=== PATIENT | female | born 1930 | race Caucasian/White ===

== ENCOUNTER → 2018-01-15 | Day surgery (SDC) | payer OTHER ==
[~2018-01-15] MED LIST: ALENDRONATE SOD35 MG PO; CLOPIDOGREL75 MG PO; LIDOCAINE HCL 2% LOCAL INJ 5 ML SDV VIAL INJ ONE; LOSARTAN POTAS100 MG PO; POTASSIUM CHLO10 ME1 PO; PROPOFOL IV EMULSION 10 MG/ML 20 ML VIAL ONE; SIMVASTATIN20 MG PO; TORSEMIDE10 MG PO
--- OUTSIDE RECORDS SUMMARY | 2018-01-15 09:21 | XMS REPORT ---
Author Author Dina Rincon [facility] Unknown Address [address] [facility]. Phone Unavailable Care Team Providers Care Biology Teacher Name Role Phone Dr. NADIA CHAUHAN Unavailable Unavailable Advance directives Directive Description Status Cardiopulmonary Resuscitation FULL CODE Verified By Medical Record Only Allergies Type Substance Reaction Status drug allergy Azithromycin Active drug allergy Ceftriaxone Active drug allergy Tramadol Active Problems Problem Effective Dates Problem Status M84.454D PATHOLOGICAL FRACTURE, PELVIS, SUBSEQUENT ENCOUNTER FOR FRACTURE WITH ROUTINE HEALING 08/14/2017 Active S42.001A FRACTURE OF UNSPECIFIED PART OF RIGHT CLAVICLE, INITIAL ENCOUNTER FOR CLOSED FRACTURE 08/14/2017 Active Z91.81 HISTORY OF FALLING 08/14/2017 Active E78.5 HYPERLIPIDEMIA, UNSPECIFIED 08/14/2017 Active N17.9 ACUTE KIDNEY FAILURE, UNSPECIFIED 08/14/2017 Active S42.025D NONDISPLACED FRACTURE OF SHAFT OF LEFT CLAVICLE, SUBSEQUENT ENCOUNTER FOR FRACTURE WITH ROUTINE HEALING 08/14/2017 Active K57.90 DIVERTICULOSIS OF INTESTINE, PART UNSPECIFIED, WITHOUT PERFORATION OR ABSCESS WITHOUT BLEEDING 08/14/2017 Active S32.009A UNSPECIFIED FRACTURE OF UNSPECIFIED LUMBAR VERTEBRA, INITIAL ENCOUNTER FOR CLOSED FRACTURE 08/14/2017 Active S42.101A FRACTURE OF UNSPECIFIED PART OF SCAPULA, RIGHT SHOULDER, INITIAL ENCOUNTER FOR CLOSED FRACTURE 08/14/2017 Active E87.5 HYPERKALEMIA 08/14/2017 Active W19.XXXA UNSPECIFIED FALL, INITIAL ENCOUNTER 08/14/2017 Active F10.10 ALCOHOL ABUSE, UNCOMPLICATED 08/14/2017 Active D64.9 ANEMIA, UNSPECIFIED 08/14/2017 Active I10 ESSENTIAL (PRIMARY) HYPERTENSION 08/14/2017 Active K21.9 GASTRO-ESOPHAGEAL REFLUX DISEASE WITHOUT ESOPHAGITIS 08/14/2017 Active M81.8 OTHER OSTEOPOROSIS WITHOUT CURRENT PATHOLOGICAL FRACTURE 08/14/2017 Active Medications Medication Dose Form Route Sig Text Dates Status Senna Tablet 8.6 MG 1 tablet Tablet Oral Give 1 tablet by mouth as needed for Constipation Daily 08/14/2017 21:45:00 Folic Acid Tablet 1 MG 1 tablet Tablet Oral Give 1 tablet by mouth one time a day for Supplement 08/15/2017 7:00:00 Colace Capsule 100 MG 1 capsule Capsule Oral Give 1 capsule by mouth two times a day for Constipation 08/15/2017 7:00:00 Omeprazole Tablet Delayed Release 20 MG 1 tablet Tablet Delayed Release Oral Give 1 tablet by mouth in the morning for GERD 08/15/2017 6:30:00 Carafate Tablet 1 GM 1 tablet Tablet Oral 1 TAB(S) BY MOUTH 4 TIMES A DAY 08/15/2017 7:00:00 Ascorbic Acid Wafer 500 MG 1 wafer Wafer Oral Give 1 wafer by mouth one time a day for Supplement 08/15/2017 7:00:00 08/18/2017 10:06:00 Aborted Ferrous Sulfate Tablet 325 (65 Fe) MG 1 tablet Tablet Oral Give 1 tablet by mouth three times a day for Supplement 08/15/2017 7:00:00 08/18/2017 10:07:00 Aborted Potassium Chloride ER Tablet Extended Release 10 MEQ 1 tablet Tablet Extended Release Oral 1 TAB(S) BY MOUTH 2 TIMES A DAY 08/15/2017 7:00:00 Alendronate Sodium Tablet 35 MG 1 tablet Tablet Oral 1 TAB(S) BY MOUTH BEFORE BREAKFAST EVERY 7 DAYS (GIVE WITH 8OZ OF WATER, REMAIN UP RIGHT FOR 30MINUTES, NPO FOR 30MIN) FOR OSTEOPOROSISGIV 08/18/2017 7:00:00 Torsemide Tablet 20 MG 2 tablet Tablet Oral 2 TAB(S) BY MOUTH PM(2 TABS=40MG) 08/15/2017 19:00:00 Tylenol with Codeine #3 Tablet 300-30 MG 1 tablet Tablet Oral Give 1 tablet by mouth every 4 hours as needed for Pain 08/14/2017 21:45:00 08/22/2017 8:59:00 Aborted Zocor Tablet 10 MG 1 tablet Tablet Oral 1 TAB(S) BY MOUTH AT BEDTIME 08/15/2017 19:00:00 Losartan Potassium Tablet 50 MG 1 tablet Tablet Oral 1 TAB(S) BY MOUTH QDHOLD FOR SBP <110 HR <60 08/15/2017 7:00:00 Multivitamins Capsule 1 capsule Capsule Oral Give 1 capsule by mouth one time a day for Supplement 08/15/2017 7:00:00 Tylenol Tablet 325 MG 2 tablet Tablet Oral Give 2 tablet by mouth every 4 hours as needed for Pain Give 2 [id number] 08/14/2017 21:45:00 Thiamine HCl Tablet 100 MG 1 tablet Tablet Oral Give 1 tablet by mouth one time a day for Supplement 08/15/2017 7:00:00 Ferrous Sulfate Tablet 325 (65 Fe) MG 1 tablet Tablet Oral Give 1 tablet by mouth in the morning for Supplement 08/19/2017 7:00:00 [place] Tablet 5-325 MG 1 tablet Tablet Oral 1 TAB(S) BY MOUTH EVERY 4 HOURS NEEDED 08/18/2017 10:15:00 08/26/2017 17:15:00 Aborted GlycoLax Powder 17 gram Powder Oral Give 17 gram by mouth one time a day for constipation (in Liquid) 08/19/2017 7:00:00 Robaxin-750 Tablet 1 tablet Tablet Oral Give 1 tablet by mouth every 8 hours for Pain 08/22/2017 6:00:00 [place] Tablet 10-325 MG 1 tablet Tablet Oral 1 TAB(S) BY MOUTH EVERY 6 HOURS 08/22/2017 09/06/2017 2:37:00 Aborted Zofran Tablet 4 MG 1 tablet Tablet Oral 1 TAB(S) BY MOUTH EVERY 6 HOURS NEEDED 08/25/2017 9:00:00 Omeprazole Tablet Delayed Release 20 MG 1 tablet Tablet Delayed Release Oral Give 1 tablet by mouth two times a day for Prophylaxis 09/02/2017 15:00:00 Melatonin Tablet 3 MG 1 tablet Tablet Oral Give 1 tablet by mouth as needed for insomnia 09/02/2017 17:45:00 [place] Tablet 10-325 MG 1 tablet Tablet Oral Give 1 tablet by mouth every 6 hours as needed for Pain related to FRACTURE OF UNSPECIFIED PART OF SCAPULA, RIGHT SHOULDER, INITIAL ENCOUNTER FOR CLOSED FRACTURE (S42.101A) 09/06/2017 2:45:00 Tuberculin PPD Solution 0.1 ml Solution Intradermal Inject 0.1 ml intradermally one time only for Prophylaxis for 1 Day Adm within first 24 hours of admission. Repeat yearly. 08/14/2017 20:00:00 08/15/2017 19:59:00 Completed Cipro Tablet 250 MG 1 tablet Tablet Oral 1 TAB(S) BY MOUTH EVERY 12 HOURS FOR 2 DAYS 08/15/2017 7:00:00 08/17/2017 6:59:00 Completed Lasix Tablet 20 MG 1 tablet Tablet Oral 1 TAB(S) BY MOUTH EVERY MORNING FOR 3 DAYS 08/26/2017 7:00:00 08/29/2017 6:59:00 Completed Results No Known Results Vital signs Description Observation Date INTRAVASCULAR SYSTOLIC 112.0 mm[Hg] 08/14/2017 23:33:00 INTRAVASCULAR DIASTOLIC 95.0 mm[Hg] 08/14/2017 23:33:00 BODY TEMPERATURE 98.2 [degF] 08/14/2017 23:33:00 RESPIRATION RATE 18.0 /min 08/14/2017 23:33:00 HEART BEAT 56.0 {beats}/min 08/14/2017 23:33:00 OXYGEN SATURATION 95.0 % 08/14/2017 23:33:00 OXYGEN SATURATION 97.0 % 08/15/2017 4:01:00 RESPIRATION RATE 20.0 /min 08/15/2017 4:55:01 INTRAVASCULAR SYSTOLIC 103.0 mm[Hg] 08/15/2017 4:55:01 INTRAVASCULAR DIASTOLIC 81.0 mm[Hg] 08/15/2017 4:55:01 BODY TEMPERATURE 98.9 [degF] 08/15/2017 4:55:01 HEART BEAT 89.0 {beats}/min 08/15/2017 4:55:01 INTRAVASCULAR SYSTOLIC 110.0 mm[Hg] 08/15/2017 7:52:00 INTRAVASCULAR DIASTOLIC 75.0 mm[Hg] 08/15/2017 7:52:00 HEART BEAT 86.0 {beats}/min 08/15/2017 7:52:00 BODY WEIGHT (MEASURED) 144.8 [lb_av] 08/15/2017 10:06:00 BODY HEIGHT (MEASURED) 62.0 [in_i] 08/15/2017 10:06:00 RESPIRATION RATE 18.0 /min 08/15/2017 10:56:33 INTRAVASCULAR SYSTOLIC 110.0 mm[Hg] 08/15/2017 10:56:33 INTRAVASCULAR DIASTOLIC 75.0 mm[Hg] 08/15/2017 10:56:33 BODY TEMPERATURE 98.2 [degF] 08/15/2017 10:56:33 HEART BEAT 86.0 {beats}/min 08/15/2017 10:56:33 PAIN LEVEL 6.0 {score} 08/15/2017 15:21:31 PAIN LEVEL 1.0 {score} 08/15/2017 16:09:00 INTRAVASCULAR SYSTOLIC 123.0 mm[Hg] 08/15/2017 20:26:00 INTRAVASCULAR DIASTOLIC 56.0 mm[Hg] 08/15/2017 20:26:00 BODY TEMPERATURE 98.2 [degF] 08/15/2017 20:26:00 RESPIRATION RATE 18.0 /min 08/15/2017 20:26:00 HEART BEAT 72.0 {beats}/min 08/15/2017 20:26:00 OXYGEN SATURATION 96.0 % 08/15/2017 20:26:00 RESPIRATION RATE 18.0 /min 08/15/2017 21:41:29 INTRAVASCULAR SYSTOLIC 123.0 mm[Hg] 08/15/2017 21:41:29 INTRAVASCULAR DIASTOLIC 56.0 mm[Hg] 08/15/2017 21:41:29 BODY TEMPERATURE 98.2 [degF] 08/15/2017 21:41:29 HEART BEAT 72.0 {beats}/min 08/15/2017 21:41:29 PAIN LEVEL 7.0 {score} 08/16/2017 0:55:00 PAIN LEVEL 0.0 {score} 08/16/2017 1:55:00 RESPIRATION RATE 18.0 /min 08/16/2017 3:45:29 INTRAVASCULAR SYSTOLIC 94.0 mm[Hg] 08/16/2017 3:45:29 INTRAVASCULAR DIASTOLIC 63.0 mm[Hg] 08/16/2017 3:45:29 BODY TEMPERATURE 98.1 [degF] 08/16/2017 3:45:29 HEART BEAT 89.0 {beats}/min 08/16/2017 3:45:29 OXYGEN SATURATION 96.0 % 08/16/2017 4:05:00 PAIN LEVEL 8.0 {score} 08/16/2017 6:15:04 PAIN LEVEL 4.0 {score} 08/16/2017 7:15:00 PAIN LEVEL 4.0 {score} 08/16/2017 8:21:03 INTRAVASCULAR SYSTOLIC 126.0 mm[Hg] 08/16/2017 8:26:13 INTRAVASCULAR DIASTOLIC 80.0 mm[Hg] 08/16/2017 8:26:13 HEART BEAT 103.0 {beats}/min 08/16/2017 8:26:13 PAIN LEVEL 5.0 {score} 08/16/2017 10:21:35 PAIN LEVEL 4.0 {score} 08/16/2017 11:22:00 PAIN LEVEL 2.0 {score} 08/16/2017 12:22:08 RESPIRATION RATE 18.0 /min 08/16/2017 18:47:20 INTRAVASCULAR SYSTOLIC 108.0 mm[Hg] 08/16/2017 18:47:20 INTRAVASCULAR DIASTOLIC 72.0 mm[Hg] 08/16/2017 18:47:20 BODY TEMPERATURE 98.1 [degF] 08/16/2017 18:47:20 HEART BEAT 82.0 {beats}/min 08/16/2017 18:47:20 RESPIRATION RATE 18.0 /min 08/17/2017 2:06:07 INTRAVASCULAR SYSTOLIC 110.0 mm[Hg] 08/17/2017 2:06:07 INTRAVASCULAR DIASTOLIC 51.0 mm[Hg] 08/17/2017 2:06:07 BODY TEMPERATURE 98.8 [degF] 08/17/2017 2:06:07 HEART BEAT 68.0 {beats}/min 08/17/2017 2:06:07 PAIN LEVEL 9.0 {score} 08/17/2017 6:30:00 PAIN LEVEL 4.0 {score} 08/17/2017 7:30:00 INTRAVASCULAR SYSTOLIC 106.0 mm[Hg] 08/17/2017 8:30:18 INTRAVASCULAR DIASTOLIC 54.0 mm[Hg] 08/17/2017 8:30:18 HEART BEAT 120.0 {beats}/min 08/17/2017 8:30:18 RESPIRATION RATE 18.0 /min 08/17/2017 9:20:49 BODY TEMPERATURE 97.4 [degF] 08/17/2017 9:20:49 RESPIRATION RATE 18.0 /min 08/17/2017 17:46:56 INTRAVASCULAR SYSTOLIC 132.0 mm[Hg] 08/17/2017 17:46:56 INTRAVASCULAR DIASTOLIC 69.0 mm[Hg] 08/17/2017 17:46:56 BODY TEMPERATURE 98.3 [degF] 08/17/2017 17:46:56 HEART BEAT 83.0 {beats}/min 08/17/2017 17:46:56 RESPIRATION RATE 18.0 /min 08/18/2017 0:40:11 INTRAVASCULAR SYSTOLIC 110.0 mm[Hg] 08/18/2017 0:40:11 INTRAVASCULAR DIASTOLIC 64.0 mm[Hg] 08/18/2017 0:40:11 BODY TEMPERATURE 98.7 [degF] 08/18/2017 0:40:11 HEART BEAT 89.0 {beats}/min 08/18/2017 0:40:11 OXYGEN SATURATION 93.0 % 08/18/2017 0:41:00 PAIN LEVEL 7.0 {score} 08/18/2017 5:00:00 PAIN LEVEL 0.0 {score} 08/18/2017 6:54:53 INTRAVASCULAR SYSTOLIC 145.0 mm[Hg] 08/18/2017 8:37:13 INTRAVASCULAR DIASTOLIC 85.0 mm[Hg] 08/18/2017 8:37:13 HEART BEAT 93.0 {beats}/min 08/18/2017 8:37:13 PAIN LEVEL 5.0 {score} 08/18/2017 9:24:43 RESPIRATION RATE 18.0 /min 08/18/2017 10:15:29 BODY TEMPERATURE 97.6 [degF] 08/18/2017 10:15:29 PAIN LEVEL 0.0 {score} 08/18/2017 10:54:01 PAIN LEVEL 10.0 {score} 08/18/2017 12:24:00 PAIN LEVEL 0.0 {score} 08/18/2017 13:49:59 RESPIRATION RATE 21.0 /min 08/18/2017 17:21:29 INTRAVASCULAR SYSTOLIC 132.0 mm[Hg] 08/18/2017 17:21:29 INTRAVASCULAR DIASTOLIC 59.0 mm[Hg] 08/18/2017 17:21:29 BODY TEMPERATURE 98.0 [degF] 08/18/2017 17:21:29 HEART BEAT 73.0 {beats}/min 08/18/2017 17:21:29 PAIN LEVEL 6.0 {score} 08/18/2017 20:14:24 PAIN LEVEL 1.0 {score} 08/18/2017 21:11:33 RESPIRATION RATE 18.0 /min 08/19/2017 2:46:09 INTRAVASCULAR SYSTOLIC 123.0 mm[Hg] 08/19/2017 2:46:09 INTRAVASCULAR DIASTOLIC 55.0 mm[Hg] 08/19/2017 2:46:09 BODY TEMPERATURE 98.8 [degF] 08/19/2017 2:46:09 HEART BEAT 74.0 {beats}/min 08/19/2017 2:46:09 OXYGEN SATURATION 93.0 % 08/19/2017 3:19:00 PAIN LEVEL 5.0 {score} 08/19/2017 7:52:08 INTRAVASCULAR SYSTOLIC 114.0 mm[Hg] 08/19/2017 7:56:59 INTRAVASCULAR DIASTOLIC 67.0 mm[Hg] 08/19/2017 7:56:59 HEART BEAT 116.0 {beats}/min 08/19/2017 7:56:59 RESPIRATION RATE 18.0 /min 08/19/2017 8:20:34 BODY TEMPERATURE 97.6 [degF] 08/19/2017 8:20:34 PAIN LEVEL 3.0 {score} 08/19/2017 9:00:00 PAIN LEVEL 8.0 {score} 08/19/2017 13:00:00 PAIN LEVEL 2.0 {score} 08/19/2017 14:00:00 PAIN LEVEL 6.0 {score} 08/19/2017 15:42:35 PAIN LEVEL 2.0 {score} 08/19/2017 16:40:00 PAIN LEVEL 8.0 {score} 08/19/2017 17:00:00 INTRAVASCULAR SYSTOLIC 115.0 mm[Hg] 08/19/2017 19:06:00 INTRAVASCULAR DIASTOLIC 64.0 mm[Hg] 08/19/2017 19:06:00 BODY TEMPERATURE 98.2 [degF] 08/19/2017 19:06:00 RESPIRATION RATE 18.0 /min 08/19/2017 19:06:00 HEART BEAT 88.0 {beats}/min 08/19/2017 19:06:00 OXYGEN SATURATION 98.0 % 08/19/2017 19:06:00 PAIN LEVEL 1.0 {score} 08/19/2017 19:40:00 RESPIRATION RATE 18.0 /min 08/19/2017 21:07:13 INTRAVASCULAR SYSTOLIC 115.0 mm[Hg] 08/19/2017 21:07:13 INTRAVASCULAR DIASTOLIC 64.0 mm[Hg] 08/19/2017 21:07:13 BODY TEMPERATURE 97.6 [degF] 08/19/2017 21:07:13 HEART BEAT 88.0 {beats}/min 08/19/2017 21:07:13 RESPIRATION RATE 18.0 /min 08/20/2017 2:54:39 INTRAVASCULAR SYSTOLIC 111.0 mm[Hg] 08/20/2017 2:54:39 INTRAVASCULAR DIASTOLIC 80.0 mm[Hg] 08/20/2017 2:54:39 BODY TEMPERATURE 98.2 [degF] 08/20/2017 2:54:39 HEART BEAT 70.0 {beats}/min 08/20/2017 2:54:39 OXYGEN SATURATION 93.0 % 08/20/2017 3:14:00 RESPIRATION RATE 18.0 /min 08/20/2017 8:36:04 INTRAVASCULAR SYSTOLIC 142.0 mm[Hg] 08/20/2017 8:36:04 INTRAVASCULAR DIASTOLIC 83.0 mm[Hg] 08/20/2017 8:36:04 BODY TEMPERATURE 98.0 [degF] 08/20/2017 8:36:04 HEART BEAT 98.0 {beats}/min 08/20/2017 8:36:04 PAIN LEVEL 6.0 {score} 08/20/2017 8:57:47 INTRAVASCULAR SYSTOLIC 146.0 mm[Hg] 08/20/2017 8:58:46 INTRAVASCULAR DIASTOLIC 74.0 mm[Hg] 08/20/2017 8:58:46 HEART BEAT 87.0 {beats}/min 08/20/2017 8:58:46 PAIN LEVEL 2.0 {score} 08/20/2017 11:22:06 PAIN LEVEL 6.0 {score} 08/20/2017 15:25:13 PAIN LEVEL 1.0 {score} 08/20/2017 18:35:20 RESPIRATION RATE 18.0 /min 08/20/2017 18:46:36 INTRAVASCULAR SYSTOLIC 120.0 mm[Hg] 08/20/2017 18:46:36 INTRAVASCULAR DIASTOLIC 72.0 mm[Hg] 08/20/2017 18:46:36 BODY TEMPERATURE 98.5 [degF] 08/20/2017 18:46:36 HEART BEAT 84.0 {beats}/min 08/20/2017 18:46:36 INTRAVASCULAR SYSTOLIC 120.0 mm[Hg] 08/20/2017 19:09:00 INTRAVASCULAR DIASTOLIC 72.0 mm[Hg] 08/20/2017 19:09:00 BODY TEMPERATURE 98.2 [degF] 08/20/2017 19:09:00 RESPIRATION RATE 18.0 /min 08/20/2017 19:09:00 HEART BEAT 82.0 {beats}/min 08/20/2017 19:09:00 OXYGEN SATURATION 96.0 % 08/20/2017 19:09:00 PAIN LEVEL 6.0 {score} 08/20/2017 20:27:52 PAIN LEVEL 1.0 {score} 08/20/2017 21:19:51 RESPIRATION RATE 20.0 /min 08/21/2017 4:13:08 INTRAVASCULAR SYSTOLIC 100.0 mm[Hg] 08/21/2017 4:13:08 INTRAVASCULAR DIASTOLIC 62.0 mm[Hg] 08/21/2017 4:13:08 BODY TEMPERATURE 98.9 [degF] 08/21/2017 4:13:08 HEART BEAT 85.0 {beats}/min 08/21/2017 4:13:08 OXYGEN SATURATION 95.0 % 08/21/2017 6:24:00 PAIN LEVEL 6.0 {score} 08/21/2017 7:27:15 INTRAVASCULAR SYSTOLIC 129.0 mm[Hg] 08/21/2017 7:28:52 INTRAVASCULAR DIASTOLIC 72.0 mm[Hg] 08/21/2017 7:28:52 HEART BEAT 79.0 {beats}/min 08/21/2017 7:28:52 RESPIRATION RATE 18.0 /min 08/21/2017 8:19:19 BODY TEMPERATURE 97.6 [degF] 08/21/2017 8:19:19 PAIN LEVEL 2.0 {score} 08/21/2017 8:29:00 BODY WEIGHT (MEASURED) 143.2 [lb_av] 08/21/2017 14:26:00 RESPIRATION RATE 19.0 /min 08/21/2017 20:53:48 INTRAVASCULAR SYSTOLIC 99.0 mm[Hg] 08/21/2017 20:53:48 INTRAVASCULAR DIASTOLIC 56.0 mm[Hg] 08/21/2017 20:53:48 BODY TEMPERATURE 98.9 [degF] 08/21/2017 20:53:48 HEART BEAT 77.0 {beats}/min 08/21/2017 20:53:48 PAIN LEVEL 8.0 {score} 08/21/2017 22:13:00 PAIN LEVEL 1.0 {score} 08/21/2017 23:49:52 OXYGEN SATURATION 96.0 % 08/22/2017 0:56:00 RESPIRATION RATE 18.0 /min 08/22/2017 1:28:51 INTRAVASCULAR SYSTOLIC 109.0 mm[Hg] 08/22/2017 1:28:51 INTRAVASCULAR DIASTOLIC 57.0 mm[Hg] 08/22/2017 1:28:51 BODY TEMPERATURE 97.6 [degF] 08/22/2017 1:28:51 HEART BEAT 75.0 {beats}/min 08/22/2017 1:28:51 INTRAVASCULAR SYSTOLIC 114.0 mm[Hg] 08/22/2017 7:28:27 INTRAVASCULAR DIASTOLIC 64.0 mm[Hg] 08/22/2017 7:28:27 HEART BEAT 71.0 {beats}/min 08/22/2017 7:28:27 RESPIRATION RATE 18.0 /min 08/22/2017 8:57:56 BODY TEMPERATURE 97.6 [degF] 08/22/2017 8:57:56 PAIN LEVEL 6.0 {score} 08/22/2017 12:07:32 PAIN LEVEL 4.0 {score} 08/22/2017 17:27:37 RESPIRATION RATE 18.0 /min 08/22/2017 19:28:20 INTRAVASCULAR SYSTOLIC 106.0 mm[Hg] 08/22/2017 19:28:20 INTRAVASCULAR DIASTOLIC 55.0 mm[Hg] 08/22/2017 19:28:20 BODY TEMPERATURE 98.1 [degF] 08/22/2017 19:28:20 HEART BEAT 80.0 {beats}/min 08/22/2017 19:28:20 PAIN LEVEL 6.0 {score} 08/22/2017 20:28:33 PAIN LEVEL 1.0 {score} 08/22/2017 21:57:56 OXYGEN SATURATION 98.0 % 08/23/2017 0:43:00 RESPIRATION RATE 18.0 /min 08/23/2017 1:06:58 INTRAVASCULAR SYSTOLIC 117.0 mm[Hg] 08/23/2017 1:06:58 INTRAVASCULAR DIASTOLIC 54.0 mm[Hg] 08/23/2017 1:06:58 BODY TEMPERATURE 98.4 [degF] 08/23/2017 1:06:58 HEART BEAT 74.0 {beats}/min 08/23/2017 1:06:58 PAIN LEVEL 4.0 {score} 08/23/2017 7:55:50 INTRAVASCULAR SYSTOLIC 116.0 mm[Hg] 08/23/2017 7:56:08 INTRAVASCULAR DIASTOLIC 60.0 mm[Hg] 08/23/2017 7:56:08 HEART BEAT 72.0 {beats}/min 08/23/2017 7:56:08 RESPIRATION RATE 18.0 /min 08/23/2017 8:40:55 BODY TEMPERATURE 98.0 [degF] 08/23/2017 8:40:55 PAIN LEVEL 1.0 {score} 08/23/2017 9:04:20 PAIN LEVEL 3.0 {score} 08/23/2017 11:51:21 INTRAVASCULAR SYSTOLIC 103.0 mm[Hg] 08/23/2017 15:50:00 INTRAVASCULAR DIASTOLIC 48.0 mm[Hg] 08/23/2017 15:50:00 BODY TEMPERATURE 96.8 [degF] 08/23/2017 15:50:00 RESPIRATION RATE 18.0 /min 08/23/2017 15:50:00 HEART BEAT 68.0 {beats}/min 08/23/2017 15:50:00 OXYGEN SATURATION 91.0 % 08/23/2017 15:50:00 PAIN LEVEL 4.0 {score} 08/23/2017 16:49:50 PAIN LEVEL 1.0 {score} 08/23/2017 18:00:00 PAIN LEVEL 4.0 {score} 08/23/2017 19:42:59 RESPIRATION RATE 18.0 /min 08/23/2017 20:02:20 INTRAVASCULAR SYSTOLIC 103.0 mm[Hg] 08/23/2017 20:02:20 INTRAVASCULAR DIASTOLIC 48.0 mm[Hg] 08/23/2017 20:02:20 BODY TEMPERATURE 96.5 [degF] 08/23/2017 20:02:20 HEART BEAT 68.0 {beats}/min 08/23/2017 20:02:20 PAIN LEVEL 8.0 {score} 08/24/2017 1:03:09 RESPIRATION RATE 18.0 /min 08/24/2017 2:51:58 INTRAVASCULAR SYSTOLIC 145.0 mm[Hg] 08/24/2017 2:51:58 INTRAVASCULAR DIASTOLIC 70.0 mm[Hg] 08/24/2017 2:51:58 BODY TEMPERATURE 98.4 [degF] 08/24/2017 2:51:58 HEART BEAT 78.0 {beats}/min 08/24/2017 2:51:58 OXYGEN SATURATION 95.0 % 08/24/2017 2:53:00 PAIN LEVEL 6.0 {score} 08/24/2017 6:17:18 INTRAVASCULAR SYSTOLIC 105.0 mm[Hg] 08/24/2017 8:18:51 INTRAVASCULAR DIASTOLIC 61.0 mm[Hg] 08/24/2017 8:18:51 HEART BEAT 69.0 {beats}/min 08/24/2017 8:18:51 PAIN LEVEL 3.0 {score} 08/24/2017 8:22:07 RESPIRATION RATE 18.0 /min 08/24/2017 8:33:28 BODY TEMPERATURE 97.6 [degF] 08/24/2017 8:33:28 PAIN LEVEL 2.0 {score} 08/24/2017 9:35:00 PAIN LEVEL 4.0 {score} 08/24/2017 12:25:17 INTRAVASCULAR SYSTOLIC 136.0 mm[Hg] 08/24/2017 15:55:00 INTRAVASCULAR DIASTOLIC 77.0 mm[Hg] 08/24/2017 15:55:00 BODY TEMPERATURE 98.2 [degF] 08/24/2017 15:55:00 RESPIRATION RATE 18.0 /min 08/24/2017 15:55:00 HEART BEAT 72.0 {beats}/min 08/24/2017 15:55:00 OXYGEN SATURATION 95.0 % 08/24/2017 15:55:00 RESPIRATION RATE 18.0 /min 08/24/2017 18:12:49 INTRAVASCULAR SYSTOLIC 136.0 mm[Hg] 08/24/2017 18:12:49 INTRAVASCULAR DIASTOLIC 77.0 mm[Hg] 08/24/2017 18:12:49 BODY TEMPERATURE 98.2 [degF] 08/24/2017 18:12:49 HEART BEAT 72.0 {beats}/min 08/24/2017 18:12:49 PAIN LEVEL 7.0 {score} 08/24/2017 21:47:48 PAIN LEVEL 6.0 {score} 08/25/2017 0:48:04 RESPIRATION RATE 18.0 /min 08/25/2017 3:56:44 INTRAVASCULAR SYSTOLIC 116.0 mm[Hg] 08/25/2017 3:56:44 INTRAVASCULAR DIASTOLIC 63.0 mm[Hg] 08/25/2017 3:56:44 BODY TEMPERATURE 97.9 [degF] 08/25/2017 3:56:44 HEART BEAT 81.0 {beats}/min 08/25/2017 3:56:44 OXYGEN SATURATION 96.0 % 08/25/2017 3:57:00 PAIN LEVEL 6.0 {score} 08/25/2017 6:14:16 INTRAVASCULAR SYSTOLIC 129.0 mm[Hg] 08/25/2017 7:40:56 INTRAVASCULAR DIASTOLIC 68.0 mm[Hg] 08/25/2017 7:40:56 HEART BEAT 73.0 {beats}/min 08/25/2017 7:40:56 RESPIRATION RATE 18.0 /min 08/25/2017 8:23:24 BODY TEMPERATURE 97.6 [degF] 08/25/2017 8:23:24 PAIN LEVEL 0.0 {score} 08/25/2017 12:11:42 RESPIRATION RATE 19.0 /min 08/25/2017 18:31:13 INTRAVASCULAR SYSTOLIC 113.0 mm[Hg] 08/25/2017 18:31:13 INTRAVASCULAR DIASTOLIC 60.0 mm[Hg] 08/25/2017 18:31:13 BODY TEMPERATURE 98.1 [degF] 08/25/2017 18:31:13 HEART BEAT 79.0 {beats}/min 08/25/2017 18:31:13 OXYGEN SATURATION 95.0 % 08/26/2017 4:42:00 RESPIRATION RATE 18.0 /min 08/26/2017 7:18:40 INTRAVASCULAR SYSTOLIC 119.0 mm[Hg] 08/26/2017 7:18:40 INTRAVASCULAR DIASTOLIC 74.0 mm[Hg] 08/26/2017 7:18:40 BODY TEMPERATURE 98.5 [degF] 08/26/2017 7:18:40 HEART BEAT 87.0 {beats}/min 08/26/2017 7:18:40 INTRAVASCULAR SYSTOLIC 133.0 mm[Hg] 08/26/2017 7:49:04 INTRAVASCULAR DIASTOLIC 69.0 mm[Hg] 08/26/2017 7:49:04 HEART BEAT 68.0 {beats}/min 08/26/2017 7:49:04 RESPIRATION RATE 18.0 /min 08/26/2017 9:32:23 BODY TEMPERATURE 97.8 [degF] 08/26/2017 9:32:23 PAIN LEVEL 0.0 {score} 08/26/2017 12:20:00 PAIN LEVEL 6.0 {score} 08/26/2017 13:55:31 RESPIRATION RATE 17.0 /min 08/26/2017 18:20:00 INTRAVASCULAR SYSTOLIC 111.0 mm[Hg] 08/26/2017 18:20:00 INTRAVASCULAR DIASTOLIC 58.0 mm[Hg] 08/26/2017 18:20:00 BODY TEMPERATURE 98.2 [degF] 08/26/2017 18:20:00 HEART BEAT 63.0 {beats}/min 08/26/2017 18:20:00 PAIN LEVEL 0.0 {score} 08/27/2017 0:06:00 RESPIRATION RATE 18.0 /min 08/27/2017 1:24:53 INTRAVASCULAR SYSTOLIC 118.0 mm[Hg] 08/27/2017 1:24:53 INTRAVASCULAR DIASTOLIC 63.0 mm[Hg] 08/27/2017 1:24:53 BODY TEMPERATURE 97.7 [degF] 08/27/2017 1:24:53 HEART BEAT 80.0 {beats}/min 08/27/2017 1:24:53 OXYGEN SATURATION 93.0 % 08/27/2017 1:26:00 INTRAVASCULAR SYSTOLIC 124.0 mm[Hg] 08/27/2017 7:33:07 INTRAVASCULAR DIASTOLIC 74.0 mm[Hg] 08/27/2017 7:33:07 HEART BEAT 95.0 {beats}/min 08/27/2017 7:33:07 BODY WEIGHT (MEASURED) 138.6 [lb_av] 08/27/2017 8:27:00 PAIN LEVEL 0.0 {score} 08/27/2017 12:04:39 RESPIRATION RATE 18.0 /min 08/27/2017 12:37:09 BODY TEMPERATURE 98.3 [degF] 08/27/2017 12:37:09 PAIN LEVEL 6.0 {score} 08/27/2017 15:56:18 RESPIRATION RATE 18.0 /min 08/27/2017 17:19:16 INTRAVASCULAR SYSTOLIC 143.0 mm[Hg] 08/27/2017 17:19:16 INTRAVASCULAR DIASTOLIC 78.0 mm[Hg] 08/27/2017 17:19:16 BODY TEMPERATURE 98.5 [degF] 08/27/2017 17:19:16 HEART BEAT 71.0 {beats}/min 08/27/2017 17:19:16 INTRAVASCULAR SYSTOLIC 143.0 mm[Hg] 08/27/2017 17:20:00 INTRAVASCULAR DIASTOLIC 78.0 mm[Hg] 08/27/2017 17:20:00 BODY TEMPERATURE 98.5 [degF] 08/27/2017 17:20:00 RESPIRATION RATE 18.0 /min 08/27/2017 17:20:00 HEART BEAT 72.0 {beats}/min 08/27/2017 17:20:00 OXYGEN SATURATION 98.0 % 08/27/2017 17:20:00 PAIN LEVEL 6.0 {score} 08/27/2017 20:07:49 PAIN LEVEL 1.0 {score} 08/27/2017 22:25:28 PAIN LEVEL 6.0 {score} 08/28/2017 2:43:03 RESPIRATION RATE 18.0 /min 08/28/2017 3:03:40 INTRAVASCULAR SYSTOLIC 112.0 mm[Hg] 08/28/2017 3:03:40 INTRAVASCULAR DIASTOLIC 63.0 mm[Hg] 08/28/2017 3:03:40 BODY TEMPERATURE 98.8 [degF] 08/28/2017 3:03:40 HEART BEAT 78.0 {beats}/min 08/28/2017 3:03:40 OXYGEN SATURATION 96.0 % 08/28/2017 3:18:00 PAIN LEVEL 7.0 {score} 08/28/2017 6:14:09 INTRAVASCULAR SYSTOLIC 127.0 mm[Hg] 08/28/2017 7:41:27 INTRAVASCULAR DIASTOLIC 84.0 mm[Hg] 08/28/2017 7:41:27 HEART BEAT 88.0 {beats}/min 08/28/2017 7:41:27 RESPIRATION RATE 18.0 /min 08/28/2017 11:39:45 BODY TEMPERATURE 98.1 [degF] 08/28/2017 11:39:45 PAIN LEVEL 4.0 {score} 08/28/2017 12:46:56 INTRAVASCULAR SYSTOLIC 125.0 mm[Hg] 08/28/2017 16:04:00 INTRAVASCULAR DIASTOLIC 75.0 mm[Hg] 08/28/2017 16:04:00 BODY TEMPERATURE 97.4 [degF] 08/28/2017 16:04:00 RESPIRATION RATE 18.0 /min 08/28/2017 16:04:00 HEART BEAT 67.0 {beats}/min 08/28/2017 16:04:00 OXYGEN SATURATION 93.0 % 08/28/2017 16:04:00 RESPIRATION RATE 18.0 /min 08/28/2017 21:05:49 INTRAVASCULAR SYSTOLIC 125.0 mm[Hg] 08/28/2017 21:05:49 INTRAVASCULAR DIASTOLIC 75.0 mm[Hg] 08/28/2017 21:05:49 BODY TEMPERATURE 97.4 [degF] 08/28/2017 21:05:49 HEART BEAT 67.0 {beats}/min 08/28/2017 21:05:49 PAIN LEVEL 7.0 {score} 08/29/2017 0:39:16 RESPIRATION RATE 18.0 /min 08/29/2017 3:50:16 INTRAVASCULAR SYSTOLIC 110.0 mm[Hg] 08/29/2017 3:50:16 INTRAVASCULAR DIASTOLIC 66.0 mm[Hg] 08/29/2017 3:50:16 BODY TEMPERATURE 97.9 [degF] 08/29/2017 3:50:16 HEART BEAT 76.0 {beats}/min 08/29/2017 3:50:16 OXYGEN SATURATION 96.0 % 08/29/2017 4:02:00 PAIN LEVEL 6.0 {score} 08/29/2017 6:24:49 INTRAVASCULAR SYSTOLIC 124.0 mm[Hg] 08/29/2017 7:32:05 INTRAVASCULAR DIASTOLIC 68.0 mm[Hg] 08/29/2017 7:32:05 HEART BEAT 70.0 {beats}/min 08/29/2017 7:32:05 RESPIRATION RATE 18.0 /min 08/29/2017 8:33:19 INTRAVASCULAR SYSTOLIC 124.0 mm[Hg] 08/29/2017 8:33:19 INTRAVASCULAR DIASTOLIC 68.0 mm[Hg] 08/29/2017 8:33:19 BODY TEMPERATURE 98.2 [degF] 08/29/2017 8:33:19 HEART BEAT 70.0 {beats}/min 08/29/2017 8:33:19 PAIN LEVEL 0.0 {score} 08/29/2017 12:32:04 INTRAVASCULAR SYSTOLIC 127.0 mm[Hg] 08/29/2017 16:04:00 INTRAVASCULAR DIASTOLIC 60.0 mm[Hg] 08/29/2017 16:04:00 BODY TEMPERATURE 95.8 [degF] 08/29/2017 16:04:00 RESPIRATION RATE 18.0 /min 08/29/2017 16:04:00 HEART BEAT 78.0 {beats}/min 08/29/2017 16:04:00 OXYGEN SATURATION 93.0 % 08/29/2017 16:04:00 RESPIRATION RATE 18.0 /min 08/29/2017 18:24:02 INTRAVASCULAR SYSTOLIC 127.0 mm[Hg] 08/29/2017 18:24:02 INTRAVASCULAR DIASTOLIC 60.0 mm[Hg] 08/29/2017 18:24:02 BODY TEMPERATURE 95.8 [degF] 08/29/2017 18:24:02 HEART BEAT 78.0 {beats}/min 08/29/2017 18:24:02 RESPIRATION RATE 18.0 /min 08/30/2017 3:58:08 INTRAVASCULAR SYSTOLIC 112.0 mm[Hg] 08/30/2017 3:58:08 INTRAVASCULAR DIASTOLIC 73.0 mm[Hg] 08/30/2017 3:58:08 BODY TEMPERATURE 97.8 [degF] 08/30/2017 3:58:08 HEART BEAT 88.0 {beats}/min 08/30/2017 3:58:08 OXYGEN SATURATION 94.0 % 08/30/2017 4:32:00 PAIN LEVEL 7.0 {score} 08/30/2017 6:16:19 PAIN LEVEL 7.0 {score} 08/30/2017 6:16:53 RESPIRATION RATE 18.0 /min 08/30/2017 8:52:32 INTRAVASCULAR SYSTOLIC 102.0 mm[Hg] 08/30/2017 8:52:32 INTRAVASCULAR DIASTOLIC 53.0 mm[Hg] 08/30/2017 8:52:32 BODY TEMPERATURE 97.6 [degF] 08/30/2017 8:52:32 HEART BEAT 79.0 {beats}/min 08/30/2017 8:52:32 INTRAVASCULAR SYSTOLIC 102.0 mm[Hg] 08/30/2017 8:57:36 INTRAVASCULAR DIASTOLIC 53.0 mm[Hg] 08/30/2017 8:57:36 HEART BEAT 79.0 {beats}/min 08/30/2017 8:57:36 PAIN LEVEL 2.0 {score} 08/30/2017 11:08:00 PAIN LEVEL 2.0 {score} 08/30/2017 17:07:19 RESPIRATION RATE 18.0 /min 08/30/2017 17:21:55 INTRAVASCULAR SYSTOLIC 108.0 mm[Hg] 08/30/2017 17:21:55 INTRAVASCULAR DIASTOLIC 59.0 mm[Hg] 08/30/2017 17:21:55 BODY TEMPERATURE 98.2 [degF] 08/30/2017 17:21:55 HEART BEAT 73.0 {beats}/min 08/30/2017 17:21:55 OXYGEN SATURATION 93.0 % 08/31/2017 0:09:00 RESPIRATION RATE 18.0 /min 08/31/2017 1:21:12 INTRAVASCULAR SYSTOLIC 127.0 mm[Hg] 08/31/2017 1:21:12 INTRAVASCULAR DIASTOLIC 71.0 mm[Hg] 08/31/2017 1:21:12 BODY TEMPERATURE 98.6 [degF] 08/31/2017 1:21:12 HEART BEAT 76.0 {beats}/min 08/31/2017 1:21:12 INTRAVASCULAR SYSTOLIC 106.0 mm[Hg] 08/31/2017 8:08:17 INTRAVASCULAR DIASTOLIC 80.0 mm[Hg] 08/31/2017 8:08:17 HEART BEAT 79.0 {beats}/min 08/31/2017 8:08:17 RESPIRATION RATE 18.0 /min 08/31/2017 8:16:01 BODY TEMPERATURE 97.6 [degF] 08/31/2017 8:16:01 PAIN LEVEL 3.0 {score} 08/31/2017 11:48:45 RESPIRATION RATE 18.0 /min 08/31/2017 16:27:23 INTRAVASCULAR SYSTOLIC 108.0 mm[Hg] 08/31/2017 16:27:23 INTRAVASCULAR DIASTOLIC 67.0 mm[Hg] 08/31/2017 16:27:23 BODY TEMPERATURE 98.1 [degF] 08/31/2017 16:27:23 HEART BEAT 109.0 {beats}/min 08/31/2017 16:27:23 PAIN LEVEL 5.0 {score} 08/31/2017 17:26:45 PAIN LEVEL 4.0 {score} 08/31/2017 19:51:20 PAIN LEVEL 0.0 {score} 08/31/2017 20:41:33 OXYGEN SATURATION 96.0 % 09/01/2017 0:27:00 RESPIRATION RATE 18.0 /min 09/01/2017 1:05:39 INTRAVASCULAR SYSTOLIC 122.0 mm[Hg] 09/01/2017 1:05:39 INTRAVASCULAR DIASTOLIC 60.0 mm[Hg] 09/01/2017 1:05:39 BODY TEMPERATURE 98.8 [degF] 09/01/2017 1:05:39 HEART BEAT 77.0 {beats}/min 09/01/2017 1:05:39 INTRAVASCULAR SYSTOLIC 116.0 mm[Hg] 09/01/2017 7:21:56 INTRAVASCULAR DIASTOLIC 75.0 mm[Hg] 09/01/2017 7:21:56 HEART BEAT 73.0 {beats}/min 09/01/2017 7:21:56 RESPIRATION RATE 18.0 /min 09/01/2017 8:25:10 BODY TEMPERATURE 97.6 [degF] 09/01/2017 8:25:10 PAIN LEVEL 0.0 {score} 09/01/2017 12:12:52 INTRAVASCULAR SYSTOLIC 123.0 mm[Hg] 09/01/2017 15:26:00 INTRAVASCULAR DIASTOLIC 82.0 mm[Hg] 09/01/2017 15:26:00 BODY TEMPERATURE 98.2 [degF] 09/01/2017 15:26:00 RESPIRATION RATE 18.0 /min 09/01/2017 15:26:00 HEART BEAT 68.0 {beats}/min 09/01/2017 15:26:00 OXYGEN SATURATION 95.0 % 09/01/2017 15:26:00 PAIN LEVEL 0.0 {score} 09/01/2017 17:31:19 RESPIRATION RATE 18.0 /min 09/01/2017 21:30:38 INTRAVASCULAR SYSTOLIC 123.0 mm[Hg] 09/01/2017 21:30:38 INTRAVASCULAR DIASTOLIC 82.0 mm[Hg] 09/01/2017 21:30:38 BODY TEMPERATURE 98.2 [degF] 09/01/2017 21:30:38 HEART BEAT 68.0 {beats}/min 09/01/2017 21:30:38 RESPIRATION RATE 18.0 /min 09/02/2017 3:29:56 INTRAVASCULAR SYSTOLIC 121.0 mm[Hg] 09/02/2017 3:29:56 INTRAVASCULAR DIASTOLIC 76.0 mm[Hg] 09/02/2017 3:29:56 BODY TEMPERATURE 97.1 [degF] 09/02/2017 3:29:56 HEART BEAT 89.0 {beats}/min 09/02/2017 3:29:56 OXYGEN SATURATION 95.0 % 09/02/2017 4:09:00 PAIN LEVEL 7.0 {score} 09/02/2017 4:43:00 PAIN LEVEL 6.0 {score} 09/02/2017 5:38:35 INTRAVASCULAR SYSTOLIC 129.0 mm[Hg] 09/02/2017 7:28:18 INTRAVASCULAR DIASTOLIC 79.0 mm[Hg] 09/02/2017 7:28:18 HEART BEAT 92.0 {beats}/min 09/02/2017 7:28:18 RESPIRATION RATE 18.0 /min 09/02/2017 8:22:25 BODY TEMPERATURE 97.2 [degF] 09/02/2017 8:22:25 PAIN LEVEL 0.0 {score} 09/02/2017 12:08:19 INTRAVASCULAR SYSTOLIC 100.0 mm[Hg] 09/02/2017 16:09:00 INTRAVASCULAR DIASTOLIC 46.0 mm[Hg] 09/02/2017 16:09:00 BODY TEMPERATURE 98.2 [degF] 09/02/2017 16:09:00 RESPIRATION RATE 18.0 /min 09/02/2017 16:09:00 HEART BEAT 74.0 {beats}/min 09/02/2017 16:09:00 OXYGEN SATURATION 95.0 % 09/02/2017 16:09:00 RESPIRATION RATE 19.0 /min 09/02/2017 22:11:09 INTRAVASCULAR SYSTOLIC 100.0 mm[Hg] 09/02/2017 22:11:09 INTRAVASCULAR DIASTOLIC 46.0 mm[Hg] 09/02/2017 22:11:09 BODY TEMPERATURE 98.1 [degF] 09/02/2017 22:11:09 HEART BEAT 74.0 {beats}/min 09/02/2017 22:11:09 PAIN LEVEL 7.0 {score} 09/03/2017 1:49:47 RESPIRATION RATE 18.0 /min 09/03/2017 1:56:24 INTRAVASCULAR SYSTOLIC 136.0 mm[Hg] 09/03/2017 1:56:24 INTRAVASCULAR DIASTOLIC 64.0 mm[Hg] 09/03/2017 1:56:24 BODY TEMPERATURE 97.0 [degF] 09/03/2017 1:56:24 HEART BEAT 64.0 {beats}/min 09/03/2017 1:56:24 OXYGEN SATURATION 94.0 % 09/03/2017 2:01:00 PAIN LEVEL 6.0 {score} 09/03/2017 6:31:26 INTRAVASCULAR SYSTOLIC 110.0 mm[Hg] 09/03/2017 7:27:44 INTRAVASCULAR DIASTOLIC 70.0 mm[Hg] 09/03/2017 7:27:44 HEART BEAT 92.0 {beats}/min 09/03/2017 7:27:44 RESPIRATION RATE 18.0 /min 09/03/2017 8:23:57 INTRAVASCULAR SYSTOLIC 110.0 mm[Hg] 09/03/2017 8:23:57 INTRAVASCULAR DIASTOLIC 70.0 mm[Hg] 09/03/2017 8:23:57 BODY TEMPERATURE 97.4 [degF] 09/03/2017 8:23:57 HEART BEAT 92.0 {beats}/min 09/03/2017 8:23:57 BODY WEIGHT (MEASURED) 132.4 [lb_av] 09/03/2017 8:49:00 PAIN LEVEL 0.0 {score} 09/03/2017 12:20:40 PAIN LEVEL 6.0 {score} 09/03/2017 15:30:37 INTRAVASCULAR SYSTOLIC 122.0 mm[Hg] 09/03/2017 16:14:00 INTRAVASCULAR DIASTOLIC 74.0 mm[Hg] 09/03/2017 16:14:00 BODY TEMPERATURE 98.2 [degF] 09/03/2017 16:14:00 RESPIRATION RATE 18.0 /min 09/03/2017 16:14:00 HEART BEAT 78.0 {beats}/min 09/03/2017 16:14:00 OXYGEN SATURATION 96.0 % 09/03/2017 16:14:00 PAIN LEVEL 4.0 {score} 09/03/2017 17:05:36 PAIN LEVEL 2.0 {score} 09/03/2017 18:42:29 RESPIRATION RATE 18.0 /min 09/03/2017 19:24:01 INTRAVASCULAR SYSTOLIC 122.0 mm[Hg] 09/03/2017 19:24:01 INTRAVASCULAR DIASTOLIC 74.0 mm[Hg] 09/03/2017 19:24:01 BODY TEMPERATURE 98.2 [degF] 09/03/2017 19:24:01 HEART BEAT 78.0 {beats}/min 09/03/2017 19:24:01 PAIN LEVEL 6.0 {score} 09/04/2017 2:11:03 RESPIRATION RATE 20.0 /min 09/04/2017 3:08:41 INTRAVASCULAR SYSTOLIC 115.0 mm[Hg] 09/04/2017 3:08:41 INTRAVASCULAR DIASTOLIC 50.0 mm[Hg] 09/04/2017 3:08:41 BODY TEMPERATURE 97.5 [degF] 09/04/2017 3:08:41 HEART BEAT 73.0 {beats}/min 09/04/2017 3:08:41 OXYGEN SATURATION 97.0 % 09/04/2017 3:21:00 PAIN LEVEL 6.0 {score} 09/04/2017 6:20:51 INTRAVASCULAR SYSTOLIC 133.0 mm[Hg] 09/04/2017 7:48:39 INTRAVASCULAR DIASTOLIC 81.0 mm[Hg] 09/04/2017 7:48:39 HEART BEAT 76.0 {beats}/min 09/04/2017 7:48:39 RESPIRATION RATE 18.0 /min 09/04/2017 8:39:16 BODY TEMPERATURE 97.8 [degF] 09/04/2017 8:39:16 BODY WEIGHT (MEASURED) 129.8 [lb_av] 09/04/2017 8:42:00 PAIN LEVEL 0.0 {score} 09/04/2017 12:33:11 RESPIRATION RATE 20.0 /min 09/04/2017 20:34:46 INTRAVASCULAR SYSTOLIC 113.0 mm[Hg] 09/04/2017 20:34:46 INTRAVASCULAR DIASTOLIC 58.0 mm[Hg] 09/04/2017 20:34:46 BODY TEMPERATURE 98.3 [degF] 09/04/2017 20:34:46 HEART BEAT 67.0 {beats}/min 09/04/2017 20:34:46 OXYGEN SATURATION 95.0 % 09/05/2017 0:29:00 RESPIRATION RATE 16.0 /min 09/05/2017 0:50:49 INTRAVASCULAR SYSTOLIC 110.0 mm[Hg] 09/05/2017 0:50:49 INTRAVASCULAR DIASTOLIC 63.0 mm[Hg] 09/05/2017 0:50:49 BODY TEMPERATURE 98.1 [degF] 09/05/2017 0:50:49 HEART BEAT 85.0 {beats}/min 09/05/2017 0:50:49 INTRAVASCULAR SYSTOLIC 133.0 mm[Hg] 09/05/2017 9:03:57 INTRAVASCULAR DIASTOLIC 86.0 mm[Hg] 09/05/2017 9:03:57 HEART BEAT 93.0 {beats}/min 09/05/2017 9:03:57 RESPIRATION RATE 18.0 /min 09/05/2017 10:05:02 BODY TEMPERATURE 97.2 [degF] 09/05/2017 10:05:02 PAIN LEVEL 0.0 {score} 09/05/2017 12:27:52 RESPIRATION RATE 18.0 /min 09/05/2017 17:04:00 INTRAVASCULAR SYSTOLIC 128.0 mm[Hg] 09/05/2017 17:04:00 INTRAVASCULAR DIASTOLIC 76.0 mm[Hg] 09/05/2017 17:04:00 BODY TEMPERATURE 97.6 [degF] 09/05/2017 17:04:00 HEART BEAT 86.0 {beats}/min 09/05/2017 17:04:00 PAIN LEVEL 4.0 {score} 09/05/2017 17:18:37 OXYGEN SATURATION 93.0 % 09/06/2017 0:50:00 RESPIRATION RATE 18.0 /min 09/06/2017 1:11:54 INTRAVASCULAR SYSTOLIC 115.0 mm[Hg] 09/06/2017 1:11:54 INTRAVASCULAR DIASTOLIC 64.0 mm[Hg] 09/06/2017 1:11:54 BODY TEMPERATURE 98.8 [degF] 09/06/2017 1:11:54 HEART BEAT 70.0 {beats}/min 09/06/2017 1:11:54 INTRAVASCULAR SYSTOLIC 127.0 mm[Hg] 09/06/2017 7:23:18 INTRAVASCULAR DIASTOLIC 90.0 mm[Hg] 09/06/2017 7:23:18 HEART BEAT 89.0 {beats}/min 09/06/2017 7:23:18 RESPIRATION RATE 18.0 /min 09/06/2017 10:42:10 INTRAVASCULAR SYSTOLIC 127.0 mm[Hg] 09/06/2017 10:42:10 INTRAVASCULAR DIASTOLIC 90.0 mm[Hg] 09/06/2017 10:42:10 BODY TEMPERATURE 97.9 [degF] 09/06/2017 10:42:10 HEART BEAT 89.0 {beats}/min 09/06/2017 10:42:10 PAIN LEVEL 4.0 {score} 09/06/2017 14:49:28 PAIN LEVEL 8.0 {score} 09/06/2017 19:27:27 RESPIRATION RATE 18.0 /min 09/06/2017 21:46:28 INTRAVASCULAR SYSTOLIC 118.0 mm[Hg] 09/06/2017 21:46:28 INTRAVASCULAR DIASTOLIC 80.0 mm[Hg] 09/06/2017 21:46:28 BODY TEMPERATURE 98.0 [degF] 09/06/2017 21:46:28 HEART BEAT 78.0 {beats}/min 09/06/2017 21:46:28 PAIN LEVEL 4.0 {score} 09/06/2017 22:18:21 RESPIRATION RATE 18.0 /min 09/07/2017 3:11:47 INTRAVASCULAR SYSTOLIC 115.0 mm[Hg] 09/07/2017 3:11:47 INTRAVASCULAR DIASTOLIC 57.0 mm[Hg] 09/07/2017 3:11:47 BODY TEMPERATURE 98.2 [degF] 09/07/2017 3:11:47 HEART BEAT 71.0 {beats}/min 09/07/2017 3:11:47 OXYGEN SATURATION 95.0 % 09/07/2017 4:26:00 INTRAVASCULAR SYSTOLIC 157.0 mm[Hg] 09/07/2017 7:18:48 INTRAVASCULAR DIASTOLIC 77.0 mm[Hg] 09/07/2017 7:18:48 HEART BEAT 63.0 {beats}/min 09/07/2017 7:18:48 PAIN LEVEL 4.0 {score} 09/07/2017 7:23:33 PAIN LEVEL 2.0 {score} 09/07/2017 8:51:00 RESPIRATION RATE 18.0 /min 09/07/2017 9:39:49 RESPIRATION RATE 18.0 /min 09/07/2017 22:10:25 INTRAVASCULAR SYSTOLIC 148.0 mm[Hg] 09/07/2017 22:10:25 INTRAVASCULAR DIASTOLIC 72.0 mm[Hg] 09/07/2017 22:10:25 BODY TEMPERATURE 97.9 [degF] 09/07/2017 22:10:25 HEART BEAT 70.0 {beats}/min 09/07/2017 22:10:25 RESPIRATION RATE 18.0 /min 09/08/2017 2:38:16 INTRAVASCULAR SYSTOLIC 120.0 mm[Hg] 09/08/2017 2:38:16 INTRAVASCULAR DIASTOLIC 63.0 mm[Hg] 09/08/2017 2:38:16 BODY TEMPERATURE 98.0 [degF] 09/08/2017 2:38:16 HEART BEAT 75.0 {beats}/min 09/08/2017 2:38:16 OXYGEN SATURATION 94.0 % 09/08/2017 2:51:00 INTRAVASCULAR SYSTOLIC 125.0 mm[Hg] 09/08/2017 7:48:50 INTRAVASCULAR DIASTOLIC 78.0 mm[Hg] 09/08/2017 7:48:50 HEART BEAT 63.0 {beats}/min 09/08/2017 7:48:50 RESPIRATION RATE 18.0 /min 09/08/2017 8:29:45 BODY TEMPERATURE 97.6 [degF] 09/08/2017 8:29:45 PAIN LEVEL 6.0 {score} 09/08/2017 9:32:42 PAIN LEVEL 2.0 {score} 09/08/2017 10:00:00 RESPIRATION RATE 19.0 /min 09/08/2017 17:05:41 INTRAVASCULAR SYSTOLIC 96.0 mm[Hg] 09/08/2017 17:05:41 INTRAVASCULAR DIASTOLIC 52.0 mm[Hg] 09/08/2017 17:05:41 BODY TEMPERATURE 98.7 [degF] 09/08/2017 17:05:41 HEART BEAT 66.0 {beats}/min 09/08/2017 17:05:41 OXYGEN SATURATION 94.0 % 09/09/2017 0:27:00 RESPIRATION RATE 19.0 /min 09/09/2017 1:29:37 INTRAVASCULAR SYSTOLIC 135.0 mm[Hg] 09/09/2017 1:29:37 INTRAVASCULAR DIASTOLIC 57.0 mm[Hg] 09/09/2017 1:29:37 BODY TEMPERATURE 98.1 [degF] 09/09/2017 1:29:37 HEART BEAT 65.0 {beats}/min 09/09/2017 1:29:37 INTRAVASCULAR SYSTOLIC 124.0 mm[Hg] 09/09/2017 7:38:24 INTRAVASCULAR DIASTOLIC 80.0 mm[Hg] 09/09/2017 7:38:24 HEART BEAT 72.0 {beats}/min 09/09/2017 7:38:24 PAIN LEVEL 6.0 {score} 09/09/2017 8:45:23 RESPIRATION RATE 18.0 /min 09/09/2017 9:23:02 BODY TEMPERATURE 97.6 [degF] 09/09/2017 9:23:02 PAIN LEVEL 2.0 {score} 09/09/2017 9:51:00 RESPIRATION RATE 21.0 /min 09/09/2017 19:44:53 INTRAVASCULAR SYSTOLIC 118.0 mm[Hg] 09/09/2017 19:44:53 INTRAVASCULAR DIASTOLIC 75.0 mm[Hg] 09/09/2017 19:44:53 BODY TEMPERATURE 98.0 [degF] 09/09/2017 19:44:53 HEART BEAT 69.0 {beats}/min 09/09/2017 19:44:53 OXYGEN SATURATION 96.0 % 09/10/2017 1:08:00 RESPIRATION RATE 21.0 /min 09/10/2017 2:19:26 INTRAVASCULAR SYSTOLIC 113.0 mm[Hg] 09/10/2017 2:19:26 INTRAVASCULAR DIASTOLIC 60.0 mm[Hg] 09/10/2017 2:19:26 BODY TEMPERATURE 97.3 [degF] 09/10/2017 2:19:26 HEART BEAT 78.0 {beats}/min 09/10/2017 2:19:26 INTRAVASCULAR SYSTOLIC 135.0 mm[Hg] 09/10/2017 7:52:33 INTRAVASCULAR DIASTOLIC 74.0 mm[Hg] 09/10/2017 7:52:33 HEART BEAT 81.0 {beats}/min 09/10/2017 7:52:33 RESPIRATION RATE 18.0 /min 09/10/2017 8:34:53 BODY TEMPERATURE 97.6 [degF] 09/10/2017 8:34:53 BODY WEIGHT (MEASURED) 125.8 [lb_av] 09/10/2017 9:27:00 RESPIRATION RATE 18.0 /min 09/10/2017 17:52:30 INTRAVASCULAR SYSTOLIC 114.0 mm[Hg] 09/10/2017 17:52:30 INTRAVASCULAR DIASTOLIC 61.0 mm[Hg] 09/10/2017 17:52:30 BODY TEMPERATURE 97.9 [degF] 09/10/2017 17:52:30 HEART BEAT 78.0 {beats}/min 09/10/2017 17:52:30 INTRAVASCULAR SYSTOLIC 114.0 mm[Hg] 09/10/2017 21:38:00 INTRAVASCULAR DIASTOLIC 62.0 mm[Hg] 09/10/2017 21:38:00 BODY TEMPERATURE 98.2 [degF] 09/10/2017 21:38:00 RESPIRATION RATE 18.0 /min 09/10/2017 21:38:00 HEART BEAT 78.0 {beats}/min 09/10/2017 21:38:00 OXYGEN SATURATION 96.0 % 09/10/2017 21:38:00 RESPIRATION RATE 18.0 /min 09/11/2017 3:18:46 INTRAVASCULAR SYSTOLIC 127.0 mm[Hg] 09/11/2017 3:18:46 INTRAVASCULAR DIASTOLIC 67.0 mm[Hg] 09/11/2017 3:18:46 BODY TEMPERATURE 98.0 [degF] 09/11/2017 3:18:46 HEART BEAT 75.0 {beats}/min 09/11/2017 3:18:46 OXYGEN SATURATION 95.0 % 09/11/2017 3:58:00 INTRAVASCULAR SYSTOLIC 128.0 mm[Hg] 09/11/2017 8:05:15 INTRAVASCULAR DIASTOLIC 76.0 mm[Hg] 09/11/2017 8:05:15 HEART BEAT 80.0 {beats}/min 09/11/2017 8:05:15 RESPIRATION RATE 18.0 /min 09/11/2017 11:04:02 INTRAVASCULAR SYSTOLIC 128.0 mm[Hg] 09/11/2017 11:04:02 INTRAVASCULAR DIASTOLIC 76.0 mm[Hg] 09/11/2017 11:04:02 BODY TEMPERATURE 98.1 [degF] 09/11/2017 11:04:02 HEART BEAT 80.0 {beats}/min 09/11/2017 11:04:02 Immunizations Vaccine Date Status Reason Influenza, seasonal, injectable 08/15/2017 Refused Family Refused pneumococcal polysaccharide vaccine, 23 valent 08/15/2017 Refused Family Refused Bacillus [place] vaccine 08/14/2017 Completed Social History Smoking Status Start Date End Date Unknown if ever smoked 09/11/2017 18:54:17
--- OUTSIDE RECORDS SUMMARY | 2018-01-15 09:21 | XMS REPORT | CCD ---
Author Author Auto Generated Organization [facility] Address Unknown Phone Unavailable Care Team Providers Care Practice Consultant Name Role Phone JefferyYury Shankar Yunier CP Dl Lozano PP Allergies, Adverse Reactions, Alerts Substance Reaction Status cefTRIAXone Active NKDA Canceled Problem List Condition Effective Dates Status Dementia Active EtOH - Alcohol Active HTN - Hypertension Active Hyperlipidemia Active OP - Osteoporosis Active Medications Medication Instructions Start Date End Date Status Saline Flush 0.9% 5 mL, Route: IVP, Drug Form: INJ, 08/06/2011 08/08/2011 Discontinued PRN, PRN Line Flush, Start date: 08/06/11 16:08:00, Duration: 30 day, Stop date: 09/05/11 16:07:00 Fosamax 70 mg, PO, QMon, Substitution 08/06/2011 Ordered Allowed Namenda 5 mg oral 5 mg, 1 tab, PO, Daily, 08/06/2011 Ordered tablet Substitution Allowed ondansetron 4 mg, 2 mL, Route: IVP, Drug form: 08/06/2011 08/08/2011 Discontinued INJ, Q6H, PRN Nausea & Vomiting, Start date: 08/06/11 22:11:00, Duration: 30 day, Stop date: 09/05/11 22:10:00 Flagyl 500 mg oral 500 mg, 1 tab, PO, Q8H, 30 tab, 08/08/2011 08/18/2011 Ordered tablet Substitution Allowed ciprofloxacin 500 mg 500 mg, 1 tab, PO, Q12H, 20 tab, 08/08/2011 08/18/2011 Ordered oral tablet Substitution Allowed, TAB Zocor 10 mg, 1 tab, Route: PO, Drug form: 08/08/2011 08/08/2011 Canceled TAB, Bedtime, Start date: 08/08/11 21:00:00, Duration: 30 day, Stop date: 09/06/11 21:00:00 Exelon 9.5 mg/24 hr 9.5 mg, 1 patch, Route: TOP, Drug 08/08/2011 08/08/2011 Discontinued transdermal film, form: ERFILM, Daily, Start date: extended release 08/08/11 12:00:00, Duration: 30 day, Stop date: 09/07/11 9:00:00 Namenda 5 mg, 1 tab, Route: PO, Drug form: 08/08/2011 08/08/2011 Discontinued TAB, Daily, Start date: 08/08/11 12:00:00, Duration: 30 day, Stop date: 09/07/11 9:00:00 atenolol 50 mg oral 50 mg, 1 tab, Route: PO, Drug form: 08/08/2011 08/08/2011 Discontinued tablet TAB, QPM, Start date: 08/08/11 17:00:00, Duration: 30 day, Stop date: 09/06/11 17:00:00 aspirin 81 mg, 1 tab, Route: PO, Drug form: 08/08/2011 08/08/2011 Discontinued ECTAB, Daily, Start date: 08/08/11 11:00:00, Duration: 30 day, Stop date: 09/07/11 9:00:00 amLODipine 10 mg, 2 tab, Route: PO, Drug form: 08/08/2011 08/08/2011 Discontinued TAB, Daily, Start date: 08/08/11 11:00:00, Duration: 30 day, Stop date: 09/07/11 9:00:00 Tylenol 650 mg, 2 tab, Route: PO, Drug 08/07/2011 08/08/2011 Discontinued form: TAB, Q4H, PRN See Nurse's Notes, Start date: 08/07/11 1:13:00, Duration: 30 day, Stop date: 09/06/11 1:12:00 ciprofloxacin 400 400 mg, 200 mL, Route: IV, Drug 08/06/2011 08/08/2011 Discontinued mg/200 mL form: INJ, [id number], Start date: intravenous solution 08/06/11 23:00:00, Duration: 30 day, Stop date: 09/05/11 11:00:00 Saline Flush 0.9% 5 ml, Route: IVP, Drug Form: INJ, 08/06/2011 08/08/2011 Discontinued PRN, PRN Line Flush, Start date: 08/06/11 22:11:00, Duration: 30 day, Stop date: 09/05/11 22:10:00 Dextrose 5% with 1,000 mL, Rate: 40 ml/hr, Infuse 08/06/2011 08/08/2011 Discontinued 0.45% NaCl IV 1,000 over: 25 hr, Route: IV, Dosing mL 1,000 mL Weight 54.545 kg, Total Volume: 1,000, Start date: 08/06/11 22:11:00, Duration: 30 day, Stop date: 09/05/11 22:10:00 Flagyl 500 mg, 1 tab, Route: PO, Drug 08/07/2011 08/08/2011 Discontinued form: TAB, [id number], Start date: 08/07/11 23:00:00, Duration: 30 day, Stop date: 09/06/11 15:00:00 Vital Signs Most recent to oldest [Reference Range]: 1 2 3 Height 157.48 cm (08/06/2011 22:00:00) 157.48 cm (08/06/2011 15:01:00) Temperature Oral [96.4-99.1 DegF] 99.7 DegF *HI* (08/08/2011 16:00:00) 99.5 DegF *HI* (08/08/2011 12:00:00) 98.9 DegF (08/08/2011 08:00:00) Systolic Blood Pressure [90-140 mmHg] 119 mmHg (08/08/2011 16:00:00) 137 mmHg (08/08/2011 12:00:00) 120 mmHg (08/08/2011 08:00:00) Diastolic Blood Pressure [60-90 mmHg] 66 mmHg (08/08/2011 16:00:00) 71 mmHg (08/08/2011 12:00:00) 57 mmHg *LOW* (08/08/2011 08:00:00) Respiratory Rate [14-20 BRMIN] 18 BRMIN (08/08/2011 16:00:00) 16 BRMIN (08/08/2011 12:00:00) 18 BRMIN (08/08/2011 08:00:00) Peripheral Pulse Rate [60-100 bpm] 88 bpm (08/08/2011 16:00:00) 80 bpm (08/08/2011 12:00:00) 73 bpm (08/08/2011 08:00:00) Weight 54.545 kg (08/06/2011 22:00:00) 54.545 kg (08/06/2011 15:01:00) Results INFECTIOUS DISEASES Most recent to oldest [Reference Range]: 1 2 3 C difficile DNA [Negative] Negative 1 (08/08/2011 07:55:00) 1Interpretive Data: [employer] Clostridium difficile assay utilizes loop-mediated isothermal DNA amplification (LAMP) technology to detect a 204 bp region of the tcdA gene within the PaLoc gene segment present in all known toxigenic C. difficile strains.The assay utilizes FDA cleared IVD reagents. Performance characteristics have been verified by the [facility] within the [facility]. The [facility] is authorized under the Clinical Laboratory Improvement Amendment of 1988 (CLIA-88) to perform high complexity testing. URINALYSIS Most recent to oldest [Reference Range]: 1 2 3 UA Turbidity [Clear] Marked *ABN* (08/06/2011 15:10:00) UA Color Celina *NA* (08/06/2011 15:10:00) UA pH [5.0-8.0] 7.0 (08/06/2011 15:10:00) UA Spec Grav [<=1.030] 1.013 (08/06/2011 15:10:00) UA Glucose [Negative mg/dL] Negative mg/dL *NA* (08/06/2011 15:10:00) UA Blood [Negative] Small *ABN* (08/06/2011 15:10:00) UA Ketones [Negative mg/dL] Negative mg/dL *NA* (08/06/2011 15:10:00) UA Protein [Negative mg/dL] Negative mg/dL (08/06/2011 15:10:00) UA Urobilinogen [0.1-1.0 mg/dL] <=1.0 mg/dL *NA* (08/06/2011 15:10:00) UA Bili [Negative] Negative *NA* (08/06/2011 15:10:00) UA Leuk Est [Negative] Large *ABN* (08/06/2011 15:10:00) UA Nitrite [Negative] Negative (08/06/2011 15:10:00) UA WBC [0-5 /HPF] >182 /HPF *HI* (08/06/2011 15:10:00) UA RBC [0-2 /HPF] 10 /HPF *HI* (08/06/2011 15:10:00) UA Bacteria [None Seen /HPF] Occasional /HPF *NA* (08/06/2011 15:10:00) UA Sq Epi [Few /LPF] Few /LPF *NA* (08/06/2011 15:10:00) CHEMISTRY Most recent to oldest [Reference Range]: 1 2 3 Sodium Lvl [135-145 mEq/L] 135 mEq/L (08/08/2011 11:19:00) 134 mEq/L *LOW* (08/07/2011 05:40:00) 129 mEq/L *LOW* (08/06/2011 16:57:00) Potassium Lvl [3.5-5.1 mEq/L] 3.9 mEq/L (08/08/2011 11:19:00) 3.7 mEq/L (08/07/2011 05:40:00) 3.8 mEq/L (08/06/2011 16:57:00) Chloride Lvl [95-109 mEq/L] 102 mEq/L (08/08/2011 11:19:00) 100 mEq/L (08/07/2011 05:40:00) 96 mEq/L (08/06/2011 16:57:00) CO2 [24-32 mEq/L] 24 mEq/L (08/08/2011 11:19:00) 21 mEq/L *LOW* (08/07/2011 05:40:00) 20 mEq/L *LOW* (08/06/2011 16:57:00) AGAP [10.0-20.0 mEq/L] 12.9 mEq/L (08/08/2011 11:19:00) 16.7 mEq/L (08/07/2011 05:40:00) 16.8 mEq/L (08/06/2011 16:57:00) Creatinine Lvl [0.5-1.4 mg/dL] 0.8 mg/dL (08/08/2011 11:19:00) 0.8 mg/dL (08/07/2011 05:40:00) 1.0 mg/dL (08/06/2011 16:57:00) BUN [7-22 mg/dL] 4 mg/dL *LOW* (08/08/2011 11:19:00) 10 mg/dL (08/07/2011 05:40:00) 10 mg/dL (08/06/2011 16:57:00) B/C Ratio [6-25] 13 (08/07/2011 05:40:00) 10 (08/06/2011 16:57:00) Glucose Lvl [70-99 mg/dL] 109 mg/dL 2 *HI* (08/08/2011 11:19:00) 94 mg/dL 3 (08/07/2011 05:40:00) 111 mg/dL 4 *HI* (08/06/2011 16:57:00) Total Protein [6.4-8.4 g/dL] 5.4 g/dL *LOW* (08/07/2011 05:40:00) 6.6 g/dL (08/06/2011 16:57:00) Albumin Lvl [3.5-5.0 g/dL] 2.8 g/dL *LOW* (08/07/2011 05:40:00) 3.3 g/dL *LOW* (08/06/2011 16:57:00) Globulin [2.0-4.0 g/dL] 2.6 g/dL (08/07/2011 05:40:00) 3.3 g/dL (08/06/2011 16:57:00) A/G Ratio [0.7-1.6] 1.1 (08/07/2011 05:40:00) 1.0 (08/06/2011 16:57:00) Calcium Lvl [8.5-10.5 mg/dL] 7.9 mg/dL *LOW* (08/08/2011 11:19:00) 7.4 mg/dL *LOW* (08/07/2011 05:40:00) 8.2 mg/dL *LOW* (08/06/2011 16:57:00) ALT [0-65 U/L] 12 U/L (08/07/2011 05:40:00) 16 U/L (08/06/2011 16:57:00) AST [0-37 U/L] 8 U/L (08/07/2011 05:40:00) 12 U/L (08/06/2011 16:57:00) Alk Phos [39-136 U/L] 59 U/L (08/07/2011 05:40:00) 64 U/L (08/06/2011 16:57:00) Bili Total [0.2-1.3 mg/dL] 0.8 mg/dL (08/07/2011 05:40:00) 0.8 mg/dL (08/06/2011 16:57:00) Lactic Acid Lvl [0.5-2.2 mMol/L] 1.0 mMol/L (08/06/2011 16:57:00) Total CK [12-191 U/L] 65 U/L (08/06/2011 16:57:00) CK MB [0.5-3.6 ng/mL] 1.0 ng/mL (08/06/2011 16:57:00) CK MB Index [0.0-2.5] 1.5 (08/06/2011 16:30:00) Troponin-I [0.00-0.40 ng/mL] <0.02 ng/mL (08/06/2011 16:57:00) BNP [<=100 pg/mL] 431 pg/mL 5 *HI* (08/06/2011 16:57:00) 2Interpretive Data: Adult reference range values reflect the clinical guidelinesof the [place] [employer]. 3Interpretive Data: Adult reference range values reflect the clinical guidelinesof the [place] [employer]. 4Interpretive Data: Adult reference range values reflect the clinical guidelinesof the [place] [employer]. 5Interpretive Data: Elevated results are in line with increasing severity of congestive heart failure. Minor elevations between 100 and 300 may be seen with Myocardial Ischemia, Sodium retaining drugs, and compensated/treated heart failure. HEMATOLOGY Most recent to oldest [Reference Range]: 1 2 3 WBC [3.7-10.4 K/CMM] 12.0 K/CMM *HI* (08/08/2011 11:19:00) 15.6 K/CMM *HI* (08/07/2011 05:40:00) 22.6 K/CMM *HI* (08/06/2011 16:30:00) RBC [4.20-5.40 M/CMM] 3.34 M/CMM *LOW* (08/08/2011 11:19:00) 3.24 M/CMM *LOW* (08/07/2011 05:40:00) 3.52 M/CMM *LOW* (08/06/2011 16:30:00) Hgb [12.0-16.0 g/dL] 10.6 g/dL *LOW* (08/08/2011 11:19:00) 10.5 g/dL *LOW* (08/07/2011 05:40:00) 11.4 g/dL *LOW* (08/06/2011 16:30:00) Hct [36.0-48.0 %] 31.7 % *LOW* (08/08/2011 11:19:00) 31.2 % *LOW* (08/07/2011 05:40:00) 33.7 % *LOW* (08/06/2011 16:30:00) MCV [81.0-99.0 fL] 94.8 fL (08/08/2011 11:19:00) 96.5 fL (08/07/2011 05:40:00) 95.8 fL (08/06/2011 16:30:00) MCH [27.0-31.0 pg] 31.6 pg *HI* (08/08/2011 11:19:00) 32.5 pg *HI* (08/07/2011 05:40:00) 32.2 pg *HI* (08/06/2011 16:30:00) MCHC [32.0-36.0 g/dL] 33.3 g/dL (08/08/2011 11:19:00) 33.7 g/dL (08/07/2011 05:40:00) 33.7 g/dL (08/06/2011 16:30:00) RDW [11.5-14.5 %] 14.5 % (08/08/2011 11:19:00) 14.1 % (08/07/2011 05:40:00) 14.5 % (08/06/2011 16:30:00) Platelet [133-450 K/CMM] 214 K/CMM (08/08/2011 11:19:00) 209 K/CMM (08/07/2011 05:40:00) 263 K/CMM (08/06/2011 16:30:00) MPV [7.4-10.4 fL] 8.7 fL (08/08/2011 11:19:00) 9.5 fL (08/07/2011 05:40:00) 9.5 fL (08/06/2011 16:30:00) Segs [45.0-75.0 %] 80.8 % *HI* (08/08/2011 11:19:00) 82.9 % *HI* (08/07/2011 05:40:00) 86.6 % *HI* (08/06/2011 16:30:00) Lymphocytes [20.0-40.0 %] 10.7 % *LOW* (08/08/2011 11:19:00) 8.1 % *LOW* (08/07/2011 05:40:00) 6.2 % *LOW* (08/06/2011 16:30:00) Monocytes [2.0-12.0 %] 6.6 % (08/08/2011 11:19:00) 7.4 % (08/07/2011 05:40:00) 6.8 % (08/06/2011 16:30:00) Eosinophils [0.0-4.0 %] 1.7 % (08/08/2011 11:19:00) 1.2 % (08/07/2011 05:40:00) 0.1 % (08/06/2011 16:30:00) Basophils [0.0-1.0 %] 0.2 % (08/08/2011 11:19:00) 0.4 % (08/07/2011 05:40:00) 0.3 % (08/06/2011 16:30:00) Segs-Bands # [1.5-8.1 K/CMM] 9.7 K/CMM *HI* (08/08/2011 11:19:00) 12.9 K/CMM *HI* (08/07/2011 05:40:00) 19.5 K/CMM *HI* (08/06/2011 16:30:00) Lymphocytes # [1.0-5.5 K/CMM] 1.3 K/CMM (08/08/2011 11:19:00) 1.3 K/CMM (08/07/2011 05:40:00) 1.4 K/CMM (08/06/2011 16:30:00) Monocytes # [0.0-0.8 K/CMM] 0.8 K/CMM (08/08/2011 11:19:00) 1.2 K/CMM *HI* (08/07/2011 05:40:00) 1.5 K/CMM *HI* (08/06/2011 16:30:00) Eosinophils # [0.0-0.5 K/CMM] 0.2 K/CMM (08/08/2011 11:19:00) 0.2 K/CMM (08/07/2011 05:40:00) 0.0 K/CMM (08/06/2011 16:30:00) Basophils # [0.0-0.2 K/CMM] 0.0 K/CMM (08/08/2011 11:19:00) 0.1 K/CMM (08/07/2011 05:40:00) 0.1 K/CMM (08/06/2011 16:30:00) RBC Morph See Note (08/08/2011 11:19:00) Normal (08/06/2011 16:30:00) Polychrom [None Seen] Slight (08/08/2011 11:19:00) Microcyte [None Seen] 1+ *ABN* (08/08/2011 11:19:00) Plt Morph Normal (08/08/2011 11:19:00) Giant Plt [None Seen] Slight *ABN* (08/06/2011 16:30:00) Large Plt [None Seen] Slight *ABN* (08/06/2011 16:30:00) PT [12.0-14.7 seconds] 14.8 seconds *HI* (08/06/2011 16:30:00) INR [0.85-1.17] 1.16 6 (08/06/2011 16:30:00) PTT [22.9-35.8 seconds] 32.6 seconds 7 (08/06/2011 16:57:00) 6Interpretive Data: RECOMMENDED RANGES FOR PROTIME INR: 2.0-3.0 for most medical and surgical thromboembolic states. 2.5-3.5 for artificial heart valves and recurrent embolism.INR SHOULD BE USED ONLY FOR PATIENTS ON STABLE ANTICOAGULANT THERAPY. 7Interpretive Data: Heparin Therapeutic Range: 57 - 92 Seconds Microbiology Reports PROCEDURE:Culture: Blood STATUS: In Progress BODY SITE: Right Hand COLLECTED DATE/TIME: 08/07/2011 01:33:00 SOURCE: Blood FREE TEXT SOURCE: PRELIMINARY REPORTS Preliminary Report No Growth At 1 Day Preliminary Report No Growth At 2 Days Preliminary Report No Growth; Holding PROCEDURE:Culture: Blood STATUS: In Progress BODY SITE: Right Arm COLLECTED DATE/TIME: 08/07/2011 01:33:00 SOURCE: Blood FREE TEXT SOURCE: PRELIMINARY REPORTS Preliminary Report No Growth; Holding Preliminary Report No Growth At 1 Day Preliminary Report No Growth At 2 Days PROCEDURE:Culture: Urine STATUS: Auth (Verified) BODY SITE: COLLECTED DATE/TIME: 08/07/2011 01:20:00 SOURCE: Urine, Clean Catch FREE TEXT SOURCE: FINAL REPORTS Final Report 10,000 - 50,000 CFU/mL Skin [place] PRELIMINARY REPORTS Preliminary Report No Growth; Holding PROCEDURE:Culture: Blood STATUS: In Progress BODY SITE: Right Hand COLLECTED DATE/TIME: 08/06/2011 17:07:00 SOURCE: Blood FREE TEXT SOURCE: PRELIMINARY REPORTS Preliminary Report No Growth At 3 Days Preliminary Report No Growth; Holding Preliminary Report No Growth At 1 Day Preliminary Report No Growth At 2 Days PROCEDURE:Culture: Blood STATUS: In Progress BODY SITE: Right Arm COLLECTED DATE/TIME: 08/06/2011 16:57:00 SOURCE: Blood FREE TEXT SOURCE: PRELIMINARY REPORTS Preliminary Report No Growth At 2 Days Preliminary Report No Growth At 1 Day Preliminary Report No Growth At 3 Days Preliminary Report No Growth; Holding
--- OUTSIDE RECORDS SUMMARY | 2018-01-15 09:21 | XMS REPORT | Summary of Care ---
Author Organization Unknown Address Unknown Phone Unavailable Care Team Providers Care Immigration Judge Name Role Phone Dl Lozano PCP Encounter [facility](GREGG) [id number] Date(s): 06/27/14 - 06/27/14 [facility] [address] [place] [address]- Discharge Diagnosis: Closed fracture of clavicle Discharge Disposition: Home Physician Attending: Susie Sierra MD Vital Signs Most recent to 1 2 oldest [Reference Range]: Height 157.48 cm (06/27/14 8:55 AM) Temperature Oral 98 DegF 98.8 DegF [96.4-99.1 DegF] (06/27/14 2:13 PM) (06/27/14 8:55 AM) Blood Pressure 144/68 mmHg 166/94 mmHg [90-140/60-90 mmHg] *HI* *HI* (06/27/14 2:13 PM) (06/27/14 8:55 AM) Respiratory Rate 20 BRMIN [14-20 BRMIN] (06/27/14 8:55 AM) Peripheral Pulse 66 bpm 77 bpm Rate [60-100 bpm] (06/27/14 2:13 PM) (06/27/14 8:55 AM) Weight 50.909 kg (06/27/14 8:55 AM) Body Mass Index 20.53 m2 (06/27/14 8:55 AM) Problem List Condition Effective Dates Status Health Status Informant Dementia(Confirmed) Active EtOH - Active Alcohol(Confirmed) High blood Resolved pressure(Confirmed) HTN - Active Hypertension(Confirm ed) Hypercholesteremia(C Resolved onfirmed) Hyperlipidemia(Confi Active rmed) OP - Active Osteoporosis(Confirm ed) Allergies, Adverse Reactions, Alerts Substance Reaction Severity Status cefTRIAXone Active Medications morphine Sulfate 2 mg, Route: IVP, ONCE, Dosing Weight 50.909, kg, Priority: STAT, Start date: 9:26:00, Stop date: 06/27/14 9:26:00 Start Date: 06/27/14 Stop Date: 06/27/14 Status: Completed Saline Flush 0.9% 10 mL, Route: IVP, Drug Form: INJ, Dosing Weight 50.909, kg, PRN, PRN Line Flush , Start date: 06/27/14 9:26:00, Duration: 30 day, Stop date: 07/27/14 9:25:00 Notes: (Same as: BD Posiflush) Start Date: 06/27/14 Stop Date: 06/28/14 Status: Discontinued tramadol 50 mg oral tablet 50 mg, Route: PO, Drug form: TAB, ONCE, Dosing Weight 50.909, kg, Priority: STAT , Start date: 06/27/14 13:35:00, Stop date: 06/27/14 13:35:00 Start Date: 06/27/14 Stop Date: 06/27/14 Status: Completed tramadol 50 mg oral tablet 50 mg=1 tab, PO, Q6H, PRN Pain, X 10 day, # 30 tab, 0 Refill(s) Start Date: 06/27/14 Stop Date: 07/07/14 Status: Ordered Results ELECTROLYTES Most recent to 1 oldest [Reference Range]: Sodium Lvl [135-145 139 mEq/L mEq/L] (06/27/14 10:27 AM) Potassium Lvl 3.9 mEq/L [3.5-5.1 mEq/L] (06/27/14 10:27 AM) Chloride Lvl [95-109 102 mEq/L mEq/L] (06/27/14 10:27 AM) CO2 [24-32 mEq/L] 28 mEq/L (06/27/14 10:27 AM) AGAP [10.0-20.0 12.9 mEq/L mEq/L] (06/27/14 10:27 AM) CHEM PANEL Most recent to 1 oldest [Reference Range]: Creatinine Lvl 1.1 mg/dL [0.5-1.4 mg/dL] (06/27/14 10:27 AM) eGFR 47 mL/min/1.73m2 1 *NA* (06/27/14 10:27 AM) BUN [7-22 mg/dL] 17 mg/dL (06/27/14 10: AM) B/C Ratio [6-25] 15 (06/27/14: AM) Glucose Lvl [70-99 83 mg/dL 2 mg/dL] (06/27/14: AM) Total Protein 7.2 g/dL [6.4-8.4 g/dL] (06/27/14: AM) Albumin Lvl [3.5-5.0 4.0 g/dL g/dL] (06/27/14: AM) Globulin [2.0-4.0 3.2 g/dL g/dL] (06/27/14: AM) A/G Ratio [0.7-1.6] 1.2 (06/27/14: AM) Calcium Lvl 8.2 mg/dL [8.5-10.5 mg/dL] *LOW* (06/27/14:27 AM) ALT [0-65 unit/L] 14 unit/L (06/27/14 10:27 AM) AST [0-37 unit/L] 13 unit/L (06/27/14: AM) Alk Phos [39-136 95 unit/L unit/L] (06/27/14: AM) Bili Total [0.2-1.3 0.8 mg/dL mg/dL] (06/27/14 10:27 AM) 1Result Comment: The eGFR is calculated using the CKD-EPI formula. In most young, healthy individuals the eGFR will be >90 mL/min/1.73m2. The eGFR declines with age. An eGFR of 60-89 may be normal in some populations, particularly the elderly, for whom the CKD-EPI formula has not been extensively validated. Use of the eGFR is not recommended in the following populations: Individuals with unstable creatinine concentrations, including patients and those with serious co-morbid conditions. Patients with extremes in muscle mass or diet. The data above are obtained from the National Kidney Disease Education Program ( NKDEP) which additionally recommends that when the eGFR is used in patients with extremes of body mass index for purposes of drug dosing, the eGFR should be mul tiplied by the estimated BMI. 2Interpretive Data: Adult reference range values reflect the clinical guidelines of the [place] [employer]. TOXICOLOGY Most recent to 1 oldest [Reference Range]: Etoh (%) <.003 % 3 *NA* (06/27/14 10:27 AM) Ethanol Lvl <3 mg/dL 4 *NA* (06/27/14 10:27 AM) 3Interpretive Data: Ethanol testing results should be used for medical purposes only. Negative Range: <0.003% Toxic Range: >0.25% 4Interpretive Data: Negative Range: <3 mg/dL Toxic Range: >250 mg/dL URINE AND STOOL Most recent to 1 oldest [Reference Range]: UA Turbidity [Clear] Clear (06/27/14 1:02 PM) UA Color Ltyellow *NA* (06/27/14 1:02 PM) UA pH [5.0-8.0] 6.0 (06/27/14 1:02 PM) UA Spec Grav 1.017 [<=1.030] (06/27/14 1:02 PM) UA Glucose [Negative Negative mg/dL mg/dL] *NA* (06/27/14 1:02 PM) UA Blood [Negative] Negative (06/27/14 1:02 PM) UA Ketones [Negative Trace mg/dL mg/dL] *ABN* (06/27/14 1:02 PM) UA Protein [Negative Negative mg/dL mg/dL] (06/27/14 1:02 PM) UA Urobilinogen <=1.0 mg/dL [0.1-1.0 mg/dL] *NA* (06/27/14 1:02 PM) UA Bili [Negative] Negative *NA* (06/27/14 1:02 PM) UA Leuk Est Negative [Negative] (06/27/14 1:02 PM) UA Nitrite Negative [Negative] (06/27/14 1:02 PM) UA WBC [0-5 /HPF] 1 /HPF (06/27/14 1:02 PM) UA RBC [0-2 /HPF] 2 /HPF (06/27/14 1:02 PM) UA Sq Epi [Few /LPF] Occasional /LPF *NA* (06/27/14 1:02 PM) UA Hyal Cast [0-2 2 /LPF /LPF] (06/27/14 1:02 PM) HEMATOLOGY Most recent to 1 oldest [Reference Range]: WBC [3.7-10.4 K/CMM] 9.8 K/CMM (06/27/14 10:27 AM) RBC [4.20-5.40 3.62 M/CMM M/CMM] *LOW* (06/27/14 10:27 AM) Hgb [12.0-16.0 g/dL] 12.2 g/dL (06/27/14 10:27 AM) Hct [36.0-48.0 %] 35.9 % *LOW* (06/27/14 10:27 AM) MCV [80.0-98.0 fL] 99.3 fL *HI* (06/27/14 10:27 AM) MCH [27.0-31.0 pg] 33.6 pg *HI* (06/27/14 10:27 AM) MCHC [32.0-36.0 33.8 g/dL g/dL] (06/27/14 10:27 AM) RDW [11.5-14.5 %] 14.0 % (06/27/14 10:27 AM) Platelet [133-450 238 K/CMM K/CMM] (06/27/14 10:27 AM) MPV [7.4-10.4 fL] 8.5 fL (06/27/14 10:27 AM) Segs [45.0-75.0 %] 76.6 % *HI* (06/27/14 10:27 AM) Lymphocytes 14.4 % [20.0-40.0 %] *LOW* (06/27/14 10:27 AM) Monocytes [2.0-12.0 7.4 % %] (06/27/14 10:27 AM) Eosinophils [0.0-4.0 0.5 % %] (06/27/14 10:27 AM) Basophils [0.0-1.0 1.1 % %] *HI* (06/27/14 10:27 AM) Segs-Bands # 7.5 K/CMM [1.5-8.1 K/CMM] (06/27/14 10:27 AM) Lymphocytes # 1.4 K/CMM [1.0-5.5 K/CMM] (06/27/14 10:27 AM) Monocytes # [0.0-0.8 0.7 K/CMM K/CMM] (06/27/14 10:27 AM) Eosinophils # 0.1 K/CMM [0.0-0.5 K/CMM] (06/27/14 10:27 AM) Basophils # [0.0-0.2 0.1 K/CMM K/CMM] (06/27/14 10:27 AM) Macrocyte [None 1+ Seen] *ABN* (06/27/14 10:27 AM) Immunizations No data available for this section Procedures No data available for this section Social History Social History Type Response Smoking Status Never smoker; Exposure to Tobacco Smoke None; Cigarette Smoking Last 365 Days No; Reg Smoking Cessation Counseling No Assessment and Plan No data available for this section
--- OUTSIDE RECORDS SUMMARY | 2018-01-15 09:21 | XMS REPORT | Summary of Care ---
Author Author [facility] Organization [facility] Address Unknown Phone Unavailable Encounter JONEL Machuca(GREGG) [id number] Date(s): 08/10/17 - 08/14/17 [facility] [id number] [place] [address]- [phone] Discharge Disposition: Intermediate Facility Attending Physician: Darling Paris MD Admitting Physician: Darling Paris MD Vital Signs 1 2 3 Most recent to oldest [Reference Range]: 157.48 cm (08/10/17 1:12 PM) Height 98.2 DegF (08/14/17 3:53 PM) 98 DegF (08/14/17 11:52 AM) 97.9 DegF (08/14/17 7:53 AM) Temperature Oral [96.4-99.1 DegF] 90/50 mmHg (08/14/17 3:53 PM) 97/58 mmHg (08/14/17 11:52 AM) 143/84 mmHg *HI* (08/14/17 7:53 AM) Blood Pressure [90-140/60-90 mmHg] 17 BRMIN (08/14/17 3:53 PM) 17 BRMIN (08/14/17 11:52 AM) 17 BRMIN (08/14/17 7:53 AM) Respiratory Rate [14-20 BRMIN] 74 bpm (08/14/17 3:53 PM) 82 bpm (08/14/17 11:52 AM) 86 bpm (08/14/17 7:53 AM) Peripheral Pulse Rate [60-100 bpm] 59.091 kg (08/10/17 1:12 PM) Weight 23.83 m2 (08/10/17 1:12 PM) Body Mass Index Problem List Condition Effective Dates Status Health Status Informant Dementia(Confirmed) Active High blood Resolved pressure(Confirmed) HTN - Active Hypertension(Confirm ed) Hypercholesteremia(C Resolved onfirmed) Hyperlipidemia(Confi Active rmed) OP - Active Osteoporosis(Confirm ed) Allergies, Adverse Reactions, Alerts Substance Reaction Severity Status azithromycin Active cephalexin Active cefTRIAXone Active traMADol Active Medications acetaminophen 650 mg, 2 tab, Route: PO, Drug form: TAB, Q4H, Dosing Weight 59.091, kg, PRN Mimi n 1-3/Temp > 100.4 F, Start date: 08/10/17 15:24:00 CDT, Duration: 30 day, Stop date: 09/09/17 15:23:00 CDT Notes: Do not exceed 4 gm/day. (Same as: Tylenol) Start Date: 08/10/17 Stop Date: 08/14/17 Status: Discontinued acetaminophen 325 mg oral tablet 650 mg=2 tab, PO, Q4H, PRN Pain 1-3/Temp > 100.4 F, 0 Refill(s) Start Date: 08/14/17 Status: Ordered ascorbic acid 500 mg oral tablet 500 mg=1 tab, PO, Daily, 0 Refill(s) Start Date: 08/14/17 Status: Ordered aztreonam + sterile water 10 mL 1 gm, Route: IV, [id number], Dosing Weight 59.091, kg, Start date: 08/10/17 17:00:0 0 CDT, Duration: 30 day, Stop date: 09/09/17 9:00:00 CDT, ABX Indication: Urinar y Tract Infection Notes: (Same As: Azactam) Start Date: 08/10/17 Stop Date: 08/14/17 Status: Discontinued Carafate 1 gm, 1 tab, Route: PO, Drug form: TAB, QID, Dosing Weight 59.091, kg, Start haydee e: 08/12/17 17:00:00 CDT, Duration: 30 day, Stop date: 09/11/17 13:00:00 CDT Notes: May interfere w/enteral feeds - Take 1 hr before or 2 hr after antacids, dairy pdt, meals & minerals - On empty stomach.For patients unable to swallow tablet, dissolve in 10mL - 30mL of water or juice and stir before giving. (Same As: Carafate) Start Date: 08/12/17 Stop Date: 08/14/17 Status: Discontinued Carafate 1 g oral tablet PO, QID, 0 Refill(s) Start Date: 08/14/17 Status: Ordered ciprofloxacin 250 mg oral tablet 250 mg=1 tab, PO, Q12H, X 2 day, # 4 tab, 0 Refill(s) Start Date: 08/15/17 Stop Date: 08/17/17 Status: Ordered clopidogrel 75 mg oral tablet 75 mg=1 tab, PO, Daily, 0 Refill(s) Start Date: 08/10/17 Stop Date: 08/14/17 Status: Discontinued D5NS 1,000 mL 1,000 mL, Rate: 75 ml/hr, Infuse over: 13.3 hr, Route: IV, Dosing Weight 59.091 kg, Total Volume: 1,000, Start date: 08/10/17 16:01:00 CDT, Duration: 30 day, St op date: 09/09/17 16:00:00 CDT, 1.63, m2 Start Date: 08/10/17 Stop Date: 08/13/17 Status: Discontinued docusate sodium 100 mg, 1 cap, Route: PO, Drug form: CAP, BID, Dosing Weight 59.091, kg, Start d ate: 08/13/17 17:00:00 CDT, Duration: 30 day, Stop date: 09/12/17 9:00:00 CDT Notes: (Same as: Colace) (Do Not Crush) Start Date: 08/13/17 Stop Date: 08/14/17 Status: Discontinued docusate sodium 100 mg oral capsule 100 mg=1 cap, PO, BID, 0 Refill(s) Start Date: 08/14/17 Status: Ordered ferrous sulfate 325 mg, 1 tab, Route: PO, Drug form: ECTAB, TID, Dosing Weight 59.091, kg, Start date: 08/14/17 13:00:00 CDT, Duration: 30 day, Stop date: 09/13/17 9:00:00 CDT Notes: Give with food. "Do Not Crush" Start Date: 08/14/17 Stop Date: 08/14/17 Status: Discontinued ferrous sulfate 325 mg oral enteric coated tablet 325 mg=1 tab, PO, TID, 0 Refill(s) Start Date: 08/14/17 Status: Ordered folic acid 1 mg, 1 tab, Route: PO, Drug form: TAB, Daily, Dosing Weight 59.091, kg, Start d ate: 08/11/17 9:00:00 CDT, Duration: 30 day, Stop date: 09/09/17 9:00:00 CDT Notes: (Same as: Folvite) Start Date: 08/11/17 Stop Date: 08/14/17 Status: Discontinued folic acid 1 mg oral tablet 1 mg=1 tab, PO, Daily, 0 Refill(s) Start Date: 08/14/17 Status: Ordered losartan 50 mg, Route: PO, Daily, Dosing Weight 59.091, kg, Start date: 08/11/17 9:00:00 CDT, Duration: 30 day, Stop date: 09/09/17 9:00:00 CDT Start Date: 08/11/17 Stop Date: 08/14/17 Status: Discontinued losartan 50 mg oral tablet 50 mg=1 tab, PO, Daily, 0 Refill(s) Start Date: 08/10/17 Status: Ordered morphine Sulfate 6 mg, 3 mL, Route: PO, Drug form: SOLN, Q6H, Dosing Weight 59.091, kg, PRN Pain Score 7-10, Start date: 08/10/17 15:24:00 CDT, Stop date: 09/09/17 15:23:00 CDT Notes: (Same as:MORPhine Sulfate) Start Date: 08/10/17 Stop Date: 08/14/17 Status: Discontinued multivitamin 1 tab, Route: PO, Drug Form: TAB, Dosing Weight 59.091, kg, Daily, Start date: 0 08/12/17 9:00:00 CDT, Duration: 30 day, Stop date: 09/10/17 9:00:00 CDT Notes: (Same as:One Tab Daily, Tab-A-Vasu + Beta Carotene) Give with food. Start Date: 08/12/17 Stop Date: 08/14/17 Status: Discontinued multivitamin 1 tab, PO, Daily, 0 Refill(s) Start Date: 08/14/17 Status: Ordered Plavix 75 mg, Route: PO, Drug form: TAB, ONCE, Dosing Weight 59.091, kg, Priority: STAT , Start date: 08/10/17 16:01:00 CDT, Stop date: 08/10/17 16:01:00 CDT Start Date: 08/10/17 Stop Date: 08/10/17 Status: Discontinued pneumococcal 13-valent vaccine 0.5 mL, Route: IM, Drug Form: INJ, ONCALL, Start date: 08/10/17 21:03:16 CDT, St op date: 09/09/17 20:58:16 CDT Notes: Shake well prior to use (Same as: Prevnar 13) Start Date: 08/10/17 Stop Date: 08/14/17 Status: Discontinued potassium chloride 10 mEq oral tablet, extended release 10 mEq=1 tab, PO, BID, 0 Refill(s) Start Date: 08/10/17 Status: Ordered Protonix 40 mg, Route: IVP, Drug form: INJ, BID, Dosing Weight 59.091, kg, Start date: 17:00:00 CDT, Duration: 30 day, Stop date: 09/11/17 9:00:00 CDT Notes: For IV push reconstitute with 10 ml 0.9% sodium chloride and push over 2 minutes. (Same as: Protonix) Start Date: 08/12/17 Stop Date: 08/14/17 Status: Discontinued Protonix 40 mg, Route: IV, Drug form: INJ, BID, Dosing Weight 59.091, kg, Start date: 02/27 17:00:00 CDT, Duration: 30 day, Stop date: 09/09/17 9:00:00 CDT Notes: For IV push reconstitute with 10 ml 0.9% sodium chloride and push over 2 minutes. (Same as: Protonix) Start Date: 08/10/17 Stop Date: 08/12/17 Status: Voided With Results Protonix 40 mg oral enteric coated tablet 40 mg=1 tab, PO, BID, # 60 tab, 0 Refill(s) Start Date: 08/14/17 Status: Ordered Saline Flush 0.9% 10 mL, Route: IVP, Drug Form: INJ, Dosing Weight 59.091, kg, PRN, PRN Line Flush , Start date: 08/10/17 13:36:00 CDT, Duration: 30 day, Stop date: 09/09/17 13:35 :00 CDT Notes: (Same as: BD Posiflush) Start Date: 08/10/17 Stop Date: 08/14/17 Status: Discontinued senna 8.6 mg oral tablet 8.6 mg=1 tab, PO, Daily, PRN Constipation, 0 Refill(s) Start Date: 08/14/17 Status: Ordered senna 8.6 mg oral tablet 8.6 mg, 1 tab, Route: PO, Drug Form: TAB, Dosing Weight 59.091, kg, Daily, PRN C onstipation, Start date: 08/13/17 15:17:00 CDT, Duration: 30 day, Stop date: 04/27 15:16:00 CDT Notes: (Same as: Senokot) Start Date: 08/13/17 Stop Date: 08/14/17 Status: Discontinued Sodium Chloride 0.9% (Bolus) IV 1,000 mL, 1000 ml/hr, Infuse Over: 1 hr, Route: IV, 1,000, Drug form: INJ, ONCE, Priority: STAT, Dosing Weight 59.091 kg, Start date: 08/10/17 14:47:00 CDT, Stop date: 08/10/17 14:47:00 CDT Start Date: 08/10/17 Stop Date: 08/10/17 Status: Completed Sodium Chloride 0.9% (titrate) 250 mL 250 mL, Rate: To prime line and flush remaining blood products., Dosing Weight 5 9.091, kg, Route: IV, Total Volume: 250, Priority: Routine, Start Date: 08/10/17 21:05:00 CDT, Duration: 1 day, Stop date: 08/11/17 21:04:00 CDT, Replace Every: 24 hr Start Date: 08/10/17 Stop Date: 08/11/17 Status: Completed Sodium Chloride 0.9% IV 1,000 mL 1,000 mL, Rate: 25 ml/hr, Infuse over: 40 hr, Route: IV, Dosing Weight 59.091 kg , Total Volume: 1,000, Start date: 08/12/17 15:12:00 CDT, Duration: 1 day, Stop date: 08/13/17 15:11:00 CDT, 1.63, m2 Start Date: 08/12/17 Stop Date: 08/12/17 Status: Discontinued Sodium Chloride 0.9% IV 1,000 mL + M.V.I.-12 10 mL Daily + folic acid IV 1 mg Da rhonda + thiamine IV 1 1,000 mL, Rate: 1,000 ml/hr, Infuse over: 1 hr, Route: IV, Dosing Weight 59.091 kg, Total Volume: 1,011.2, Start date: 08/10/17 21:10:00 CDT, Duration: 1 doses or times, Stop date: 08/10/17 22:09:00 CDT, 1.63, m2 Start Date: 08/10/17 Stop Date: 08/10/17 Status: Completed Sodium Chloride 0.9% IV 1,000 mL + M.V.I.-12 10 mL Daily + folic acid IV 1 mg Da rhonda + thiamine IV 1 1,000 mL, Rate: 1,000 ml/hr, Infuse over: 1 hr, Route: IV, Dosing Weight 59.091 kg, Total Volume: 1,011.2, Start date: 08/10/17 14:47:00 CDT, Duration: 1 doses or times, Stop date: 08/10/17 15:46:00 CDT, 1.63, m2 Start Date: 08/10/17 Stop Date: 08/10/17 Status: Deleted thiamine 100 mg, 1 tab, Route: PO, Drug form: TAB, Daily, Dosing Weight 59.091, kg, Start date: 08/11/17 9:00:00 CDT, Stop date: 09/09/17 9:00:00 CDT Notes: (Same As: Vitamin B1) Start Date: 08/11/17 Stop Date: 08/14/17 Status: Discontinued thiamine 100 mg oral tablet 100 mg=1 tab, PO, Daily, 0 Refill(s) Start Date: 08/14/17 Status: Ordered torsemide 20 mg oral tablet 40 mg=2 tab, PO, QPM, 0 Refill(s) Start Date: 08/10/17 Status: Ordered Tylenol with Codeine #3 oral tablet 1 tab, PO, Q4H, PRN Pain Score 4-6, # 20 tab, 0 Refill(s) Start Date: 08/14/17 Stop Date: 08/14/18 Status: Ordered Tylenol with Codeine #3 oral tablet 1 tab, Route: PO, Drug Form: TAB, Dosing Weight 59.091, kg, Q4H, PRN Pain Score 4-6, Start date: 08/12/17 16:07:00 CDT, Duration: 30 day, Stop date: 09/11/17 16 :06:00 CDT Notes: Do not exceed 4gm/day of acetaminophen. (Same as: Tylenol with Codeine # 3) Start Date: 08/12/17 Stop Date: 08/14/17 Status: Discontinued Vitamin C 500 mg, 1 tab, Route: PO, Drug form: TAB, Daily, Dosing Weight 59.091, kg, Start date: 08/15/17 9:00:00 CDT, Duration: 30 day, Stop date: 09/13/17 9:00:00 CDT Notes: (Same as: Vitamin C) Start Date: 08/15/17 Stop Date: 08/14/17 Status: Canceled Zocor 10 mg, 1 tab, Route: PO, Drug form: TAB, Bedtime, Dosing Weight 59.091, kg, Star t date: 08/13/17 21:00:00 CDT, Duration: 30 day, Stop date: 09/11/17 21:00:00 CD T Notes: (Same as: Zocor) Start Date: 08/13/17 Stop Date: 08/14/17 Status: Discontinued Results BLOOD BANK RESULTS 1 2 3 Most recent to oldest [Reference Range]: AB POS *Unknown* (08/10/17 3:05 PM) ABO/Rh Negative (08/10/17 3:05 PM) Antibody Scrn Product available 1 (08/10/17 9:05 PM) RBC product 1Result Comment: 08/10/2017 21:24 [id number] spoke to carlos,2A on 08/10/2017 21:24 by Oli. ELECTROLYTES 1 2 3 Most recent to oldest [Reference Range]: 143 mEq/L (08/14/17 7:16 AM) 147 mEq/L *HI* (08/13/17 6:40 AM) 140 mEq/L (08/12/17 4:08 AM) Sodium Lvl [135-145 mEq/L] 4.3 mEq/L (08/14/17 7:16 AM) 4.2 mEq/L (08/13/17 6:40 AM) 4.3 mEq/L (08/12/17 4:08 AM) Potassium Lvl [3.5-5.1 mEq/L] 113 mEq/L *HI* (08/14/17 7:16 AM) 117 mEq/L *HI* (08/13/17 6:40 AM) 111 mEq/L *HI* (08/12/17 4:08 AM) Chloride Lvl [95-109 mEq/L] 25 mEq/L (08/14/17 7:16 AM) 21 mEq/L *LOW* (08/13/17 6:40 AM) 22 mEq/L *LOW* (08/12/17 4:08 AM) CO2 [24-32 mEq/L] 9.3 mEq/L *LOW* (08/14/17 7:16 AM) 13.2 mEq/L (08/13/17 6:40 AM) 11.3 mEq/L (08/12/17 4:08 AM) AGAP [10.0-20.0 mEq/L] CHEM PANEL 1 2 3 Most recent to oldest [Reference Range]: 1.16 mg/dL (08/14/17 7:16 AM) 0.98 mg/dL (08/13/17 6:40 AM) 1.22 mg/dL (08/12/17 4:08 AM) Creatinine Lvl [0.50-1.40 mg/dL] 43 mL/min/1.73m2 1 *NA* (08/14/17 7:16 AM) 52 mL/min/1.73m2 2 *NA* (08/13/17 6:40 AM) 40 mL/min/1.73m2 3 *NA* (08/12/17 4:08 AM) eGFR 20 mg/dL (08/14/17 7:16 AM) 20 mg/dL (08/13/17 6:40 AM) 32 mg/dL *HI* (08/12/17 4:08 AM) BUN [7-22 mg/dL] 20 (08/13/17 6:40 AM) 26 *HI* (08/12/17 4:08 AM) 31 *HI* (08/10/17 2:07 PM) B/C Ratio [6-25] 83 mg/dL (08/14/17 7:16 AM) 110 mg/dL *HI* (08/13/17 6:40 AM) 101 mg/dL *HI* (08/12/17 4:08 AM) Glucose Lvl [70-99 mg/dL] 5.7 g/dL *LOW* (08/13/17 6:40 AM) 5.4 g/dL *LOW* (08/12/17 4:08 AM) 6.2 g/dL *LOW* (08/10/17 2:07 PM) Total Protein [6.4-8.4 g/dL] 2.4 g/dL *LOW* (08/13/17 6:40 AM) 2.5 g/dL *LOW* (08/12/17 4:08 AM) 3.1 g/dL *LOW* (08/10/17 2:07 PM) Albumin Lvl [3.5-5.0 g/dL] 3.3 g/dL (08/13/17 6:40 AM) 2.9 g/dL (08/12/17 4:08 AM) 3.1 g/dL (08/10/17 2:07 PM) Globulin [2.7-4.2 g/dL] 0.7 (08/13/17 6:40 AM) 0.9 (08/12/17 4:08 AM) 1.0 (08/10/17 2:07 PM) A/G Ratio [0.7-1.6] 8.4 mg/dL *LOW* (08/14/17 7:16 AM) 7.8 mg/dL *LOW* (08/13/17 6:40 AM) 7.8 mg/dL *LOW* (08/12/17 4:08 AM) Calcium Lvl [8.5-10.5 mg/dL] 12 unit/L (08/13/17 6:40 AM) 15 unit/L (08/12/17 4:08 AM) 14 unit/L (08/10/17 2:07 PM) ALT [0-65 unit/L] 9 unit/L (08/13/17 6:40 AM) 14 unit/L (08/12/17 4:08 AM) 12 unit/L (08/10/17 2:07 PM) AST [0-37 unit/L] 63 unit/L (08/13/17 6:40 AM) 62 unit/L (08/12/17 4:08 AM) 79 unit/L (08/10/17 2:07 PM) Alk Phos [39-136 unit/L] 0.4 mg/dL (08/13/17 6:40 AM) 0.7 mg/dL (08/12/17 4:08 AM) 0.6 mg/dL (08/10/17 2:07 PM) Bili Total [0.2-1.3 mg/dL] 1Result Comment: The eGFR is calculated using [...] be mul tiplied by the estimated BMI. 2Result Comment: The eGFR is calculated using the [...] be mul tiplied by the estimated BMI. 3Result Comment: The eGFR is calculated using the [...] be mul tiplied by the estimated BMI. ENDOCRINOLOGY 1 2 3 Most recent to oldest [Reference Range]: 51 pg/mL (08/12/17 5:53 PM) Gastrin [13-115 pg/mL] URINE AND STOOL 1 2 3 Most recent to oldest [Reference Range]: Cloudy *ABN* (08/10/17 5:28 PM) UA Turbidity [Clear] Yellow *NA* (08/10/17 5:28 PM) UA Color [Yellow] 6.0 (08/10/17 5:28 PM) UA pH [5.0-8.0] 1.015 (08/10/17 5:28 PM) UA Spec Grav [<=1.030] Negative (08/10/17 5:28 PM) UA Glucose [Negative] Large *ABN* (08/10/17 5:28 PM) UA Blood [Negative] Trace *ABN* (08/10/17 5:28 PM) UA Ketones [Negative] Trace *ABN* (08/10/17 5:28 PM) UA Protein [Negative] 0.2 EU/dL (08/10/17 5:28 PM) UA Urobilinogen [0.1-1.0 EU/dL] Small *ABN* (08/10/17 5:28 PM) UA Bili [Negative] Moderate *ABN* (08/10/17 5:28 PM) UA Leuk Est [Negative] Negative (08/10/17 5:28 PM) UA Nitrite [Negative] 6-10 /HPF 1 *ABN* (08/10/17 5:28 PM) UA WBC [0-5 /HPF] 0-2 /HPF (08/10/17 5:28 PM) UA RBC [0-2 /HPF] Moderate /HPF *ABN* (08/10/17 5:28 PM) UA Bacteria [None Seen /HPF] Few /LPF (08/10/17 5:28 PM) UA Sq Epi [Few /LPF] Occasional /HPF (08/10/17 5:28 PM) UA Amorph Anna [None Seen /HPF] 0-2 /LPF *ABN* (08/10/17 5:28 PM) UA Renal Epi [None Seen /LPF] Performed (08/10/17 5:28 PM) Micro? Positive *ABN* (08/10/17 5:28 PM) Occult Bld Stl [Negative] 1Result Comment: Urine volume less than 1mL. Microscopic performed on unspun urine.08/10/2017 18:15 iko HEMATOLOGY 1 2 3 Most recent to oldest [Reference Range]: 8.5 K/CMM (08/14/17 7:16 AM) 7.2 K/CMM (08/13/17 6:40 AM) 7.0 K/CMM (08/12/17 4:08 AM) WBC [3.7-10.4 K/CMM] 2.30 M/CMM *LOW* (08/14/17 7:16 AM) 2.23 M/CMM *LOW* (08/13/17 6:40 AM) 2.37 M/CMM *LOW* (08/12/17 4:08 AM) RBC [4.20-5.40 M/CMM] 7.6 g/dL *LOW* (08/14/17 7:16 AM) 7.3 g/dL *LOW* (08/13/17 6:40 AM) 7.6 g/dL *LOW* (08/12/17 4:08 AM) Hgb [12.0-16.0 g/dL] 22.7 % *LOW* (08/14/17 7:16 AM) 22.3 % *LOW* (08/13/17 6:40 AM) 23.2 % *LOW* (08/12/17 4:08 AM) Hct [36.0-48.0 %] 98.7 fL *HI* (08/14/17 7:16 AM) 99.9 fL *HI* (08/13/17 6:40 AM) 98.0 fL (08/12/17 4:08 AM) MCV [80.0-98.0 fL] 32.9 pg *HI* (08/14/17 7:16 AM) 32.8 pg *HI* (08/13/17 6:40 AM) 32.2 pg *HI* (08/12/17 4:08 AM) MCH [27.0-31.0 pg] 33.4 g/dL (08/14/17 7:16 AM) 32.8 g/dL (08/13/17 6:40 AM) 32.9 g/dL (08/12/17 4:08 AM) MCHC [32.0-36.0 g/dL] 15.5 % *HI* (08/14/17 7:16 AM) 15.5 % *HI* (08/13/17 6:40 AM) 15.4 % *HI* (08/12/17 4:08 AM) RDW [11.5-14.5 %] 8.1 fL (08/14/17 7:16 AM) 8.5 fL (08/13/17 6:40 AM) 8.3 fL (08/12/17 4:08 AM) MPV [7.4-10.4 fL] 311 K/CMM (08/14/17 7:16 AM) 238 K/CMM (08/13/17 6:40 AM) 214 K/CMM (08/12/17 4:08 AM) Platelet [133-450 K/CMM] 57.0 % (08/14/17 7:16 AM) 61.3 % (08/13/17 6:40 AM) 67.5 % (08/12/17 4:08 AM) Segs [45.0-75.0 %] 26.0 % (08/14/17 7:16 AM) 19.3 % *LOW* (08/13/17 6:40 AM) 14.5 % *LOW* (08/12/17 4:08 AM) Lymphocytes [20.0-40.0 %] 7.0 % (08/14/17 7:16 AM) 15.6 % *HI* (08/13/17 6:40 AM) 14.3 % *HI* (08/12/17 4:08 AM) Monocytes [2.0-12.0 %] 2.8 % (08/13/17 6:40 AM) 2.7 % (08/12/17 4:08 AM) 0.8 % (08/11/17 4:16 AM) Eosinophils [0.0-4.0 %] 1.0 % (08/13/17 6:40 AM) 1.0 % (08/12/17 4:08 AM) 0.6 % (08/11/17 4:16 AM) Basophils [0.0-1.0 %] 2.0 % *HI* (08/14/17 7:16 AM) Metamyelocytes [0.0-1.0 %] 8.0 % *HI* (08/14/17 7:16 AM) Myelocytes [<=0.0 %] 4.8 K/CMM (08/14/17 7:16 AM) 4.4 K/CMM (08/13/17 6:40 AM) 4.8 K/CMM (08/12/17 4:08 AM) Segs-Bands # [1.5-8.1 K/CMM] 2.2 K/CMM (08/14/17 7:16 AM) 1.4 K/CMM (08/13/17 6:40 AM) 1.0 K/CMM (08/12/17 4:08 AM) Lymphocytes # [1.0-5.5 K/CMM] 0.6 K/CMM (08/14/17 7:16 AM) 1.1 K/CMM *HI* (08/13/17 6:40 AM) 1.0 K/CMM *HI* (08/12/17 4:08 AM) Monocytes # [0.0-0.8 K/CMM] 0.2 K/CMM (08/13/17 6:40 AM) 0.2 K/CMM (08/12/17 4:08 AM) 0.1 K/CMM (08/11/17 4:16 AM) Eosinophils # [0.0-0.5 K/CMM] 0.1 K/CMM (08/13/17 6:40 AM) 0.1 K/CMM (08/12/17 4:08 AM) 0.1 K/CMM (08/10/17 2:07 PM) Basophils # [0.0-0.2 K/CMM] 2 /100WB *NA* (08/14/17 7:16 AM) NRBC 100 *NA* (08/14/17 7:16 AM) Tot Cell Ct See Note (08/14/17 7:16 AM) RBC Morph 1+ *ABN* (08/14/17 7:16 AM) 1+ *ABN* (08/10/17 2:07 PM) Anisocyte [None Seen] Moderate *ABN* (08/14/17 7:16 AM) Polychrom [None Seen] Slight *NA* (08/10/17 2:07 PM) Polychrom 1+ (08/14/17 7:16 AM) Hypochrom [None Seen] 1+ *ABN* (08/13/17 6:40 AM) 1+ *ABN* (08/10/17 2:07 PM) Macrocyte [None Seen] Moderate *ABN* (08/14/17 7:16 AM) Target Cell [None Seen] Normal (08/14/17 7:16 AM) Plt Morph Few *NA* (08/10/17 2:07 PM) Giant Plt Slight *NA* (08/10/17 2:07 PM) Large Plt 14.5 seconds (08/12/17 4:08 AM) 14.0 seconds (08/10/17 7:23 PM) PT [12.0-14.7 seconds] 1.13 (08/12/17 4:08 AM) 1.08 (08/10/17 7:23 PM) INR [0.85-1.17] 33.4 seconds (08/12/17 4:08 AM) PTT [22.9-35.8 seconds] Microbiology Reports TEST: Culture: Urine STATUS: Auth (Verified) BODY SITE: SOURCE: Urine, Clean Catch COLLECTED DATE/TIME: 08/10/17 4:08 PM FINAL REPORT >100,000 CFU/mL Escherichia coli <10,000 CFU/mL Skin [place] ORGANISM:Escherichia coli Immunizations No data available for this section Procedures Procedure Date Related Diagnosis Body Site Status Partial resection of colon Completed Social History Social History Type Response Substance Abuse Use: None. Sexual Sexually active: No. Exercise 1 Employment/School Status: Retired. Alcohol Current, Type Wine. Frequency: Daily. Previous treatment: None. Smoking Status Never smoker; Exposure to Tobacco Smoke None; Cigarette Smoking Last 365 Days No; Reg Smoking Cessation Counseling No entered on: 08/11/17 1None Assessment and Plan Extracted from: Title: Clinical Document Author: Darling Paris MD Date: 08/14/17 Discharge Summary Name: Lulu Leggett Admission Date: 08/10/17 Discharge Date: 08/14/17 Diagnoses: Mechanical Fall with right pubic rami fracture UTI, uncomplicated acute on chronic macrocytic anemia ANYI HTN Hx of TIAs Procedures: EGD HPI: 87-year-old woman with history of hypertension, alcohol dependence, and TIAs in the past who is brought in by family for evaluation of a fall she had she suffered on Friday which would be September 05, 2017. Patient fell per the family members, after having multiple margaritas with her 90-year-old friend at her assisted living facility. Per patient she did not lose consciousness but family seems skeptical. She was taken to a local ER a few days ago where she was evaluated and sent home the same day and the fracture was not found. Patient continued to have significant pain and therefore is brought in to [facility] for reevaluation. She is found to have right pubic ramus fracture along with ecchymosis of the right hand, along with creatinine being at 1.9 with significant drop in hemoglobin from baseline to 7.6. Patient and family deny noting any dark stools. In the ER rectal exam is negative for melanotic stools. Patient denies any recent fever or chills. Denies any pain in the abdomen but reports having increasingly more distended abdomen. Family members have noted the urine is quite dark. Patient denies any headache at this time. Her main issue is the pain in the right hip region. Patient reports her last drink was on the . Family have noticed some tremors but no signs of hallucinations or agitation. -Per DR. Lovett Hospital course: Mechanical Fall w/ right pubic rami fracture - ortho consulted Dr. Mi - no surgical intervention - PT/OT - recommended SNF placement - pain controlled with tylenol 3 UTI - urine cx - read sensitive E. coli - received 5 days aztreonam - discharged with 2 days of ciprofloxacin Acute on chronic macrocytic anemia - GI Dr. Lindsey consulted - EGD with barretts esophagus, gastric and duodenal ulcers - continued PPI BID and carafate QID - gastrin level normal - biopsies are pending - needs repeat EGD in 3 months - hgb remained stable, no bleeding during hospitalization ANYI - improved with IVFs Hx of TIAs - plavix held due to ulcers and anemia - to f/u with PCP to determine if patient will need to be restarted on this Discharge condition: stable Physical Exam Gen: awake, alert, NAD HEENT: NC/AT, EOMI, oropharynx clear Pulm: CTAB, no wheezing or crackles Cardiac: RRR, no m/r/g Abd: +BS, soft, NT, ND Ext: No edema Neuro: no focal deficits Skin: No rashes or lesions Discharge therapy: Medications: see med rec Diet: cardiac Activity: as tolerates Follow up: Jessica Gordon MD , Quinn Lindsey MD, MD [facility] Hospitalist Extracted from: Title: GI Author: Hoda Mendoza NP Date: 08/14/17 Progress Note - Daily [facility] Completed: , AUG 14, 2017, 17:23 by Hoda Mendoza NP RM: 238 - 1P, SE [id number] LULU [id number] (: 1930) F Attending: Darling Paris MDPhone: Service: Internal Medicine Reason for Admission: ALCOHOL DEPENDENCE, CLOSED FRACTURE OF MULITPLE PUBNIC Working DRG: Code status: Full Code [Ordered]Current diet: Isolation: No Isolation/Standard Precautions Allergies: cephalexin, azithromycin, traMADol, cefTRIAXone SUBJECTIVE no GI complaints had BM this morning per nursing no bleeding OBJECTIVE 24hr Labs 08/14 0716 Glucose Lvl83 BUN20 Creatinine Lvl1.16 Sodium Oqr035 Potassium Lvl4.3 Chloride Grt039 H CO225 AGAP9.3 L Calcium Lvl8.4 L eGFR43 WBC8.5 RBC2.30 L Hgb7.6 L Hct22.7 L MCV98.7 H MCH32.9 H MCHC33.4 RDW15.5 H Ntmkugvp098 MPV8.1 Segs57.0 Yrxfwppkxfs55.0 Monocytes7.0 Segs-Bands #4.8 Lymphocytes #2.2 Monocytes #0.6 Metamyelocytes2.0 H Myelocytes8.0 H RBC MorphSee Note Plt MorphNormal NRBC2 Tot Cell Ct100 Anisocyte1+ Hypochrom1+ PolychromModerate Target CellModerate Amin still necessary (Yes/No): Line still necessary (Yes/No): VitalsTmp(F)EcacqNUNGMaN2VVP4 08/14 15:[id number]--- 08/14 11:[id number]--- 08/14 07:[id number]--- 08/14 04:[id number]--- 08/14 00:[id number]--- 24 Hr Tmax: 98.2F (36.78c) at 08/14 15:53Vital Signs are the last 5 in the past 48 hours. DateWt(kg)Wt(lb)Ht(cm)Ht(in)Method 08/10 (initial) 59.09 130.00Estimated 64006.48 62.00Stated I&ORecordInOutBal 08/523hr Tot 10 0 10 08/423hr Tot 21 0 21 Medications (17) Active Scheduled Meds (11): 08/15/17 ascorbic acid (Vitamin C) 500 mg PO Daily 08/10/17 aztreonam + sterile water 10 mL 1 gm IV XBBH40T 200 ml/hr 08/13/17 docusate (docusate sodium) 100 mg PO BID 08/14/17 ferrous sulfate 325 mg PO TID 08/11/17 folic acid 1 mg PO Daily 08/10/17 (Suspended) losartan 50 mg PO Daily 08/12/17 multivitamin 1 tab PO Daily 08/12/17 pantoprazole (Protonix) 40 mg IVP BID 08/13/17 simvastatin (Zocor) 10 mg PO Bedtime 08/12/17 sucralfate (Carafate) 1 gm PO QID 08/11/17 thiamine 100 mg PO Daily Unscheduled Meds (1): 08/10/17 pneumococcal 13-valent vaccine 0.5 mL IM ONCALL PRN Meds (5): 08/12/17 acetaminophen-codeine (Tylenol with Codeine #3 oral tablet) 1 tab PO Q4H 08/10/17 acetaminophen 650 mg PO Q4H 08/10/17 morphine Sulfate 6 mg PO Q6H 08/13/17 senna (senna 8.6 mg oral tablet) 8.6 mg PO Daily 08/10/17 sodium chloride (Saline Flush 0.9%) 10 mL IVP PRN One Time Meds: None Continuous Infusions: None General: No acute distress. HENT: Normocephalic, Oral mucosa is moist. Neck: Supple, Non-tender. Respiratory: Lungs are clear to auscultation, Respirations are non-labored, Breath sounds are equal, Symmetrical chest wall expansion. Cardiovascular: Normal rate, Regular rhythm, No murmur, Gastrointestinal: Soft, Non-tender, Non-distended. Integumentary: Warm, Dry, [place]. Neurologic: Alert, Oriented Psychiatric: Cooperative, Appropriate mood & affect. IMPRESSION 1. Anemia with FOBT+ stool- no overt GI bleeding reported- stable h/h 2. Minimally displaced fractures of the right superior and inferior rami as well as a nondisplaced right sacral fracture- ortho following - CT Scan- Mildly comminuted right sacral fracture. mildly displaced right superior and nondisplaced right inferior pubic rami fractures. nondisplaced right L5 transverse process fracture. Hemorrhage within the right inferior anterior abdominal wall muscle and right pelvic sidewall. 3. Hepatic steatosis with liver cyst Liver Us-Appearance of a complex left liver lobe cyst measuring up to 1.6 cm. 4. Alcoholism 5. H/o TIA, on plavix 6. Multiple Duodenal and Gastric ulcers with hiatal hernia - Normal GAstrin level RECOMMENDATIONS 1. PPI PO BID and carafate QID x 10 days 2. Monitor h/h, and for GI bleeding 3. MVI and Thiamine 4. Follow up bx results 5. ETOH abstinence reinforced 6. AVOID NSAIDS 7. Repeat EGD in 3 months. 8. Follow up in GI clinic in 2-3 weeks after d/c GI Attending I have examined the patient with the Nurse Practitioner and confirmed the essential components of history, physical examination, diagnosis and treatment plan. I agree with the patient's care as documented by the Nurse Practitioner.. Extracted from: Title: GI Consult * Author: Quinn Lindsey MD Date: 08/11/17 Impression and Plan IMPRESSION 1. Anemia with FOBT+ stool- no overt GI bleeding reported- stable post transfusion 2. Minimally displaced fractures of the right superior and inferior rami as well as a nondisplaced right sacral fracture- ortho following 3. Abnormal Imagng - CT Scan- Mildly comminuted right sacral fracture. mildly displaced right superior and nondisplaced right inferior pubic rami fractures. Nondisplaced right L5 transverse process fracture. Hemorrhage within the right inferior anterior abdominal wall muscle and right pelvic sidewall. - Liver Us-Appearance of a complex left liver lobe cyst measuring up to 1.6 cm. 3. Hepatic steatosis 4. Alcoholism 5. H/o TIA, on plavix RECOMMENDATIONS 1. PPI IV BID 2. Monitor h/h, transfuse for hgb <7 3. Montior for acute GI bleeding 4. Consents for EGD tomorrow. Alternatives, risks and complications discussed 5. NPO after MN 6. MVI and Thiamine 7. Hold plavix GI Attending I have examined the patient with the Nurse Practitioner and confirmed the essential components of history, physical examination, diagnosis and treatment plan. I agree with the patient's care as documented by the Nurse Practitioner.. Extracted from: Title: Clinical Document Author: Jose Lovett MD Date: 08/10/17 Date of admission: 08/10/2017 Reason for admission 1. Mechanical fall, right superior and inferior ramus fracture 2. Alcohol dependence 3. Monitor for alcohol withdrawal History of present illness Lulu is an 87-year-old woman with history of hypertension, alcohol dependence, and TIAs in the past who is brought in by family for evaluation of a fall she had she suffered on Friday which would be September 05, 2017. Patient fell per the family members, after having multiple margaritas with her 90-year-old friend at her assisted living facility. Per patient she did not lose consciousness but family seems skeptical. She was taken to a local ER a few days ago where she was evaluated and sent home the same day and the fracture was not found. Patient continued to have significant pain and therefore is brought in to [facility] for reevaluation. She is found to have right pubic ramus fracture along with ecchymosis of the right hand, along with creatinine being at 1.9 with significant drop in hemoglobin from baseline to 7.6. Patient and family deny noting any dark stools. In the ER rectal exam is negative for melanotic stools. Patient denies any recent fever or chills. Denies any pain in the abdomen but reports having increasingly more distended abdomen. Family members have noted the urine is quite dark. Patient denies any headache at this time. Her main issue is the pain in the right hip region. Patient reports her last drink was on the . Family have noticed some tremors but no signs of hallucinations or agitation. Past medical history 1. TIAs in the past has been 2. Alcohol dependence 3. Hypertension 4. Hyperlipidemia 5. Multiple urinary tract infections in the past Medications At Home 1. Plavix, losartan, potassium, aspirin Past surgical history 1. Distant history of colorectal cancer which was surgically resected. LY for 30 years. Social history 1. Denies any tobacco use 2. Reports daily alcohol use. Allergies: Allergic to ceftriaxone but okay with other cephalosporins?, Azithromycin, tramadol. Reason: As per HPI Family history: Reviewed but noncontributory next Physical examination Vitals: Blood pressure 114/42, temperature 98.0, pulse of 94, respiratory rate 20, 90% room air. Gen: AAOX3, NAD, atraumatic head. Neuro: Moving all extremities well except right lower extremity secondary to pain. CV: RRR, S1 and S2 Lung: CTA bilaterally, no crackles or wheezing heard. Abdomen: Distended abdomen with ascites. : no supraputic region tenderness. No CVA region tenderness. EXT: no peripheral edema. Significant tenderness to right passive flexion of the hip. Skin: no rashes or other skin color changes. Diagnostic studies X-rays of the hip and pelvis:IMPRESSION: Acute, displaced right superior and inferior pubic rami fractures. Laboratory data Sodium of 130. Creatinine 1.975. Albumin of 3.1. LFTs are normal. White blood cell count of 13. Hemoglobin of 7.6. Platelets of 228. Next Assessment and plan Tran is an 87-year-old woman who comes in with right pubic ramus fractures after mechanical fall. She has alcohol dependence. Right inferior and superior pubic rami fractures Mechanical fall. Orthopedic surgery consulted. PT/OT evaluation. Alcohol dependence Last drink on the . Monitor withdrawal symptoms. Thiamine/folate/D5NS IV fluids. Acute kidney injury Very dehydrated. Hyponatremic. Hypovolemic. Begin D5 NS as above. Recheck sodium tomorrow. Leukocytosis and bandemia Dysuria noted on history. Begin aztreonam due to allergy to cephalosporins. Obtain UA and urine cultures. TIAs and possible CVAs in the past Hold Plavix at this time. Rule out GI bleed. Macrocytic anemia Likely due to underlying cirrhosis. GI bleed need to be ruled out. Rectal exam negative for melanotic stool in the EC. Serial hemoglobins. Protonix twice daily. GI evaluation. Hypertension Low systolic in the 110s. Wide pulse pressure. Concern for hypovolemic state. Hold hypertensives. Hyperlipidemia Begin home medications once available. Distended abdomen Likely cirrhotic and due to ascites. We will obtain paracentesis once systolic and diastolic pressures are better. High risk for DVT due to pain in the right hip and relative immobility. However anti-ventilation will be started once GI bleed is ruled out. Stool occult blood testing pending. STAT INR ordered. DVT prophylaxis: SCDs Disposition: Likely 3+ midnights.
[2018-01-15 11:50] VITALS: BP 150/93
--- NOTE | 2018-01-15 14:20 | Operative Report ---
DATE OF PROCEDURE: January 15, 2018 PROCEDURE: Esophagogastroduodenoscopy. PREOPERATIVE DIAGNOSIS: The patient with a history of ulcer disease here for followup endoscopy. PROCEDURE: After informed written consent and premedications with monitored anesthesia care, standard video Olympus gastroscope was introduced into the mouth, esophagus, stomach, and into the 2nd portion of the duodenum. First and 2nd portion of the duodenum appeared to be normal. Major papilla was normal. The duodenal bulb showed evidence of scarring from probably previous old ulcer disease. Antrum and body showed mild gastritis with complete healing of ulcers and biopsies were done. Retroflexion revealed a moderately sized sliding hiatal hernia. The lower part of the esophagus showed an irregular Z-line and biopsies were done to rule out Renteria's esophagus. IMPRESSION 1. Hiatal hernia. 2. Healing of ulcer disease in the stomach and duodenum. 3. Rule out Renteria's esophagus. 4. Mild gastritis. RECOMMENDATIONS: Continue current medications. Avoid NSAIDs. Follow up in the office in 3-4 weeks to discuss biopsy results. Further recommendations based on the patient's clinical course. Job#: [id number] RIAN
== END | disposition home or self-care (01) ==
LOC: OR 09:16
PROVIDERS: ATTEND Internal Medicine Gastroenterology
DX: K44.9 Diaphragmatic hernia without obstruction or gangrene (principal); K29.70 Gastritis, unspecified, without bleeding; K29.80 Duodenitis without bleeding; K21.0 Gastro-esophageal reflux disease with esophagitis; I11.0 Hypertensive heart disease with heart failure; I50.9 Heart failure, unspecified; M81.0 Age-related osteoporosis without current pathological fracture; K76.89 Other specified diseases of liver; K76.0 Fatty (change of) liver, not elsewhere classified; F03.90 Unspecified dementia, unspecified severity, without behavioral disturbance, psychotic disturbance, mood disturbance, and anxiety; Z88.6 Allergy status to analgesic agent; Z88.1 Allergy status to other antibiotic agents; Z79.02 Long term (current) use of antithrombotics/antiplatelets; Z86.73 Personal history of transient ischemic attack (TIA), and cerebral infarction without residual deficits; Z86.2 Personal history of diseases of the blood and blood-forming organs and certain disorders involving the immune mechanism; Z87.891 Personal history of nicotine dependence; Z80.0 Family history of malignant neoplasm of digestive organs
CPT/HCPCS: 43239; 88305; 88312; 93005; J2001; J2704